=== PATIENT | male | born 1975 | race Hispanic/Latino ===

== ENCOUNTER 2020-08-23 23:53 | Emergency (ER) | payer OTHER ==
--- NOTE | 2020-08-24 01:33 | ER ---
Nurse's Notes [facility] Name: Willie Hayes Jr Age: 45 yrs Sex: Male : 1975 Arrival Date: 08/23/2020 Time: 23:54 Bed 5 Private MD: Diagnosis: Assessment: 08/24 00:58 Reassessment: Pt refused care pt states " I don't really want to go through all of ea this, I have to go to work in the morning and really can't stay here for labs or anything like that, I'll just call my doctor in the morning" Pt left ED ambulatory tolerating well. ED Course: 08/23 23:54 Patient arrived in ED. am4 Administered Medications: No medications were administered Outcome: 08/24 01:01 Patient left the ED. ea Signatures: Maria M Solorzano, RN RN Krystle Gutierrez am4
== END 2020-08-24 01:01 | disposition left against medical advice (07) ==
LOC: ER 23:53
DX: Z02.9 Encounter for administrative examinations, unspecified (principal)

== ENCOUNTER 2020-08-24 14:10 | Observation (INO) | payer OTHER ==
[2020-08-24 16:41] LABS: Protime INR 1.69
[2020-08-24 16:42] LABS: Absolute Lymphocytes (CBC) 1.5 K/uL (0.7-4.9); Basophils % 2.3 % (0-1.3); Lymphocytes % 22.5 % (15.3-44.8); MPV 9.4 fL (7.6-11.3); RBC Red Blood Cell Count 2.67 M/uL (4.33-5.43)
[2020-08-24 16:47] LABS: ALT/SGPT 23 U/L (12-78); AST/SGOT 35 U/L (15-37); Alkaline Phosphatase 121 U/L (45-117); BUN Blood Urea Nitrogen 9 mg/dL (7-18); Bicarbonate 24 mmol/L (21-32); Bilirubin Direct 0.5 mg/dL (0-0.2); Glucose Level 123 mg/dL (74-106); Hematocrit 15.2 % (39.6-49.0); Magnesium 2.3 mg/dL (1.8-2.4); NT PRO-BNP 54 pg/mL (<125); Potassium 3.6 mmol/L (3.5-5.1); Protein, Total 7.4 g/dL (6.4-8.2); Sodium Level 142 mmol/L (136-145); Troponin (Emerg Dept Use Only) < 0.02 ng/mL (0.0-0.045)
--- NOTE | 2020-08-24 17:23 | RAD REPORT ---
EXAM DESCRIPTION: RAD - Chest Single View - 08/24/2020 5:16 pm CLINICAL HISTORY: lower extremity swelling Chest pain. COMPARISON: CHEST PA AND LAT 2 VIEW dated 06/16/2012 FINDINGS: Portable technique limits examination quality. The lungs are grossly clear. The heart is normal in size. No displaced fractures. IMPRESSION: No acute intrathoracic process suspected.
[2020-08-24 18:39] LABS: Ferritin 2.2 ng/mL (26-388)
--- NOTE | 2020-08-24 18:45 | EDPHYS ---
Physician Documentation [facility] Name: Willie Hayes Jr Age: 45 yrs Sex: Male : 1975 Arrival Date: 08/24/2020 Time: 14:14 Bed 6 Private MD: Stevie Cerna ED Physician Obey Carlos HPI: 08/24 16:10 This 45 yrs old Male presents to ER via Ambulatory with complaints of Abnormal cp Lab Results. 16:10 General swelling of lower legs and anemia times 1 week. Patient reports having blood cp work drawn by office of DR Danielson yesterday and being referred to ED for anemia. Historical: - Allergies: 14:30 No Known Allergies; ca1 - Home Meds: 14:30 None [Active]; ca1 - PMHx: 14:30 Anxiety; Depression; ca1 - PSHx: 14:30 None; ca1 - Immunization history:: Flu vaccine is not up to date. - Social history:: Smoking status: Patient reports the use of cigarette tobacco products, smokes one-half pack cigarettes per day. ROS: 16:11 Eyes: Negative for injury, pain, redness, and discharge. cp 16:11 Constitutional: Negative for body aches, chills, fever, poor PO intake. 16:11 Cardiovascular: Positive for edema, Negative for chest pain, palpitations. 16:11 Respiratory: Negative for cough, shortness of breath, wheezing. 16:11 Abdomen/GI: Negative for abdominal pain, nausea, vomiting, and diarrhea. 16:11 Neuro: Negative for altered mental status, dizziness, headache, syncope, weakness. 16:11 All other systems are negative. Exam: 16:12 Head/Face: Normocephalic, atraumatic. cp 16:12 Constitutional: The patient appears in no acute distress, alert, awake, comfortable, non-diaphoretic, non-toxic, well developed, well nourished. 16:12 Eyes: Periorbital structures: appear normal, Conjunctiva: normal, no exudate, no injection, Sclera: no appreciated abnormality, Lids and lashes: appear normal, bilaterally. 16:12 ENT: External ear(s): are unremarkable, Nose: is normal, Posterior pharynx: Airway: no evidence of obstruction, patent. 16:12 Chest/axilla: Inspection: normal, Palpation: is normal, no crepitus, no tenderness. 16:12 Cardiovascular: Rate: normal, Rhythm: regular, Heart sounds: murmur, not appreciated, Edema: ankle edema, that is mild, JVD: is not appreciated. 16:12 Respiratory: the patient does not display signs of respiratory distress, Respirations: normal, no use of accessory muscles, no retractions, no splinting, no tachypnea, labored breathing, is not present, Breath sounds: are clear throughout, no decreased breath sounds, no stridor, no wheezing. 16:12 Abdomen/GI: Inspection: abdomen appears normal, Palpation: abdomen is soft and non-tender, in all quadrants. 16:12 Neuro: Orientation: to person, place \T\ time. Mentation: is normal, Cerebellar function: is grossly normal, Motor: moves all fours, strength is normal, Sensation: is normal. 16:28 ECG was reviewed by the Attending Physician. cp 17:00 : Rectal exam: Stool: brown, sample provided in toilet hat by patient, Guaiac cp testing: results were negative for occult blood. Vital Signs: 14:26 BP 158 / 73; Pulse 96; Resp 16 S; Temp 97.6(TE); Pulse Ox 100% on R/A; Weight 88.45 kg ca1 (R); Height 5 ft. 7 in. (170.18 cm) (R); Pain 0/10; 16:36 Pulse 83; Resp 17 S; Pulse Ox 99% on R/A; jd3 17:52 BP 146 / 64; Pulse 98; Resp 17; Pulse Ox 100% ; bp 19:45 BP 136 / 66; Pulse 71; Resp 18; Temp 98.6; Pulse Ox 100% ; ea 20:30 BP 134 / 64; Pulse 77; Resp 18; Temp 98.5; Pulse Ox 100% ; ea 22:11 BP 132 / 77; Pulse 70; Resp 18; Temp 98.2; Pulse Ox 100% ; ea 14:26 Body Mass Index 30.54 (88.45 kg, 170.18 cm) ca1 MDM: 15:48 Patient medically screened. cp 16:30 Differential Diagnosis chronic anemia, upper GI bleed, lower GI bleed. cp 17:35 Data reviewed: vital signs, nurses notes, lab test result(s), EKG, and as a result, I cp will admit patient. 17:35 Test interpretation: by ED physician or midlevel provider: ECG. cp 18:10 Counseling: I had a detailed discussion with the patient and/or guardian regarding: the cp historical points, exam findings, and any diagnostic results supporting the discharge/admit diagnosis, lab results, the need for further work-up and treatment in the hospital. 18:10 Physician consultation: Jadiel BAUGH was called at 18:10, was contacted at 18:10, cp regarding admission, to the telemetry unit. patient's condition. 08/24 16:04 Order name: Basic Metabolic Panel cp 08/24 16:04 Order name: CBC with Diff cp 08/24 16:04 Order name: LFT's; Complete Time: 17:02 cp 08/24 17:04 Interpretation: Normal except: ALK 121; BILID 0.5; ALB 3.0; GLOB 4.4; A/G 0.7. cp 08/24 16:04 Order name: Magnesium; Complete Time: 17:02 cp 08/24 16:04 Order name: NT PRO-BNP; Complete Time: 17:02 cp 08/24 16:04 Order name: PT-INR; Complete Time: 17:02 cp 08/24 16:04 Order name: Troponin (emerg Dept Use Only); Complete Time: 17:02 cp 08/24 16:04 Order name: Basic Metabolic Panel; Complete Time: 17:02 EDMS 08/24 16:04 Order name: CBC with Automated Diff EDMS 08/24 17:03 Interpretation: Normal except: RBC 2.67; HGB 4.0; HCT 15.2; MCV 57.1; MCH 15.1; MCHC cp 26.5; RDW 23.1; EOSINOPHIL % 7.0; BASO% 2.3. 08/24 17:04 Order name: Type And Screen cp 08/24 17:05 Order name: Type and Screen EDMS 08/24 17:31 Order name: Packed RBC Leukored EDMS 08/24 18:07 Order name: Ferritin la1 08/24 18:07 Order name: TIBC la1 08/24 16:04 Order name: XRAY Chest (1 view); Complete Time: 17:28 cp 08/24 17:29 Interpretation: Report reviewed. cp 08/24 16:04 Order name: EKG; Complete Time: 16:04 cp 08/24 16:04 Order name: Cardiac monitoring; Complete Time: 16:08 cp 08/24 16:04 Order name: EKG - Nurse/Tech; Complete Time: 16:20 cp 08/24 16:04 Order name: IV Saline Lock; Complete Time: 16:20 cp 08/24 16:04 Order name: Labs collected and sent; Complete Time: 16:19 cp 08/24 16:04 Order name: O2 Per Protocol; Complete Time: 16:19 cp 08/24 18:10 Order name: ABO/RH no charge EDOK 08/24 18:24 Order name: Iron Level la1 08/24 19:41 Order name: SARS-COV-2 RT PCR EDOK 08/24 20:15 Order name: C-Reactive Protein EDOK 08/24 22:11 Order name: CBC Smear Scan EDOK 08/24 16:04 Order name: O2 Sat Monitoring; Complete Time: 16:20 cp EC:28 Rate is 84 beats/min. Rhythm is regular. OK interval is normal. QRS interval is normal. cp QT interval is normal. T waves are Flattened in lead aVL. Interpreted by me. Reviewed by me. Administered Medications: No medications were administered Disposition: 08/25 01:21 Co-signature as Attending Physician, Obey Carlos MD I agree with the assessment and [facility] plan of care. Disposition: 08/24/20 18:44 Hospitalization ordered by Andrey Mobley for Observation. Preliminary diagnosis is Anemia in chronic diseases classified elsewhere. - Bed requested for Telemetry/MedSurg (observation). - Status is Observation. ea - Condition is Stable. - Problem is new. - Symptoms have improved. Signatures: Dispatcher [employer] Obey Reno MD MD cha Page, Corey, PA PA cp Antunez, Elena, RN RN ea Acob, Cheryl RN Yoli Oquendo RN RN rd1 Corrections: (The following items were deleted from the chart) 08/24 18:18 18:17 FERRITIN+C.LAB.BRZ ordered. EDMS EDMS 18:37 18:17 CORONAVIRUS+MR.LAB.BRZ ordered. EDMS EDMS 20:10 18:25 Ferritin ordered. EDMS EDMS 20:14 20:10 C-REACTIVE PROTEIN+C.LAB.BRZ ordered. EDMS EDMS 21:20 18:44 Hospitalization Ordered by Andrey Mobley MD for Observation. Preliminary rd1 diagnosis is Anemia in chronic diseases classified elsewhere. Bed requested for Telemetry/MedSurg (observation). Status is Observation. Condition is Stable. Problem is new. Symptoms have improved. cp 22:32 21:20 08/24/2020 18:44 Hospitalization Ordered by Andrey Mobley MD for Observation. ea Preliminary diagnosis is Anemia in chronic diseases classified elsewhere. Bed requested for Telemetry/MedSurg (observation). Status is Observation. Condition is Stable. Problem is new. Symptoms have improved. rd1
--- NOTE | 2020-08-24 18:45 | ER ---
Nurse's Notes [facility] Name: Willie Hayes Jr Age: 45 yrs Sex: Male : 1975 Arrival Date: 08/24/2020 Time: 14:14 Bed 6 Private MD: Stevie Cerna Diagnosis: Anemia in chronic diseases classified elsewhere Presentation: 08/24 14:26 Chief complaint: Patient states: Swelling on yumiko feet, ankles, legs x 1 week. Blood ca1 word done yesterday morning. Instructed by PCP to come to the ER last night for low HGB. Denies SOB. Denies dizziness, lightheaded. Denies bloody stool. Coronavirus screen: Client denies travel out of the [place] in the last 14 days. At this time, the client does not indicate any symptoms associated with coronavirus-19. Ebola Screen: Patient negative for fever greater than or equal to 101.5 degrees Fahrenheit, and additional compatible Ebola Virus Disease symptoms Patient denies exposure to infectious person. Patient denies travel to an Ebola-affected area in the 21 days before illness onset. No symptoms or risks identified at this time. Initial Sepsis Screen: Does the patient meet any 2 criteria? No. Patient's initial sepsis screen is negative. Does the patient have a suspected source of infection? No. Patient's initial sepsis screen is negative. Risk Assessment: Do you want to hurt yourself or someone else? Patient reports no desire to harm self or others. Onset of symptoms was August 24, 2020. 14:26 Method Of Arrival: Ambulatory ca1 14:26 Acuity: LAWRENCE 3 ca1 Historical: - Allergies: 14:30 No Known Allergies; ca1 - Home Meds: 14:30 None [Active]; ca1 - PMHx: 14:30 Anxiety; Depression; ca1 - PSHx: 14:30 None; ca1 - Immunization history:: Flu vaccine is not up to date. - Social history:: Smoking status: Patient reports the use of cigarette tobacco products, smokes one-half pack cigarettes per day. Screenin:36 Abuse screen: Denies threats or abuse. Nutritional screening: No deficits noted. jd3 Tuberculosis screening: No symptoms or risk factors identified. Fall Risk Ambulatory Aid- None/Bed Rest/Nurse Assist (0 pts). Gait- Normal/Bed Rest/Wheelchair (0 pts) Mental Status- Oriented to own ability (0 pts). Total Rainey Fall Scale indicates No Risk (0-24 pts). Assessment: 16:34 General: Appears in no apparent distress. comfortable, Behavior is calm, cooperative, jd3 appropriate for age. Pain: Denies pain. Neuro: Level of Consciousness is awake, alert, obeys commands, Oriented to person, place, time, situation. Cardiovascular: Denies chest pain, Capillary refill < 3 seconds Patient's skin is warm and dry. Rhythm is regular. Respiratory: Airway is patent Respiratory effort is even, unlabored, Respiratory pattern is regular, symmetrical, Denies cough, shortness of breath. GI: No signs and/or symptoms were reported involving the gastrointestinal system. : No signs and/or symptoms were reported regarding the genitourinary system. EENT: No signs and/or symptoms were reported regarding the EENT system. Derm: Skin is intact, Skin is dry, Skin is normal, Skin temperature is warm. Musculoskeletal: Circulation, motion, and sensation intact. Range of motion: intact in all extremities. 17:53 Reassessment: No changes from previously documented assessment. Patient and/or family bp updated on plan of care and expected duration. Pain level reassessed. Patient is alert, oriented x 3, equal unlabored respirations, skin warm/dry/pink. ALL CURRENT ORDERS COMPLETED. 18:15 Reassessment: Consent for RBCs obtained and signed by pt (see pt's chart). aa5 18:15 Reassessment: Patient appears in no apparent distress at this time. No changes from jd3 previously documented assessment. Patient and/or family updated on plan of care and expected duration. Pain level reassessed. Patient is alert, oriented x 3, equal unlabored respirations, skin warm/dry/pink. Patient denies pain at this time. 19:20 General: Appears in no apparent distress. comfortable, Behavior is calm, cooperative, ea appropriate for age. Pain: Denies pain. Neuro: Level of Consciousness is awake, alert, obeys commands, Oriented to person, place, time, situation. Cardiovascular: Patient's skin is warm and dry. Respiratory: Airway is patent Respiratory effort is even, unlabored, Respiratory pattern is regular, symmetrical. Derm: Skin is dry, Skin is normal, Skin temperature is warm. 20:53 Reassessment: Patient and/or family updated on plan of care and expected duration. Pain ea level reassessed. Patient is alert, oriented x 3, equal unlabored respirations, skin warm/dry/pink. 22:10 Reassessment: Patient and/or family updated on plan of care and expected duration. Pain ea level reassessed. Patient is alert, oriented x 3, equal unlabored respirations, skin warm/dry/pink. Report given to receiving nurse. Pt admitted to fourth floor. Awaiting on to bring personal belongings. Pt denies pain at this time. Vital Signs: 14:26 BP 158 / 73; Pulse 96; Resp 16 S; Temp 97.6(TE); Pulse Ox 100% on R/A; Weight 88.45 kg ca1 (R); Height 5 ft. 7 in. (170.18 cm) (R); Pain 0/10; 16:36 Pulse 83; Resp 17 S; Pulse Ox 99% on R/A; jd3 17:52 BP 146 / 64; Pulse 98; Resp 17; Pulse Ox 100% ; bp 19:45 BP 136 / 66; Pulse 71; Resp 18; Temp 98.6; Pulse Ox 100% ; ea 20:30 BP 134 / 64; Pulse 77; Resp 18; Temp 98.5; Pulse Ox 100% ; ea 22:11 BP 132 / 77; Pulse 70; Resp 18; Temp 98.2; Pulse Ox 100% ; ea 14:26 Body Mass Index 30.54 (88.45 kg, 170.18 cm) ca1 ED Course: 14:14 Patient arrived in ED. am2 14:16 Stevie Cerna MD is Private Physician. am2 14:30 Triage completed. ca1 14:30 Arm band placed on right wrist. ca1 14:37 Obey Luna PA is PHCP. cp 14:37 Obey Carlos MD is Attending Physician. cp 15:56 Reymundo Mccallum RN is Primary Nurse. jd3 16:20 Initial lab(s) drawn, by me, sent to lab. Inserted saline lock: 20 gauge in right em1 antecubital area, using aseptic technique. Blood collected. 16:36 Patient has correct armband on for positive identification. Bed in low position. Call jd3 light in reach. Side rails up X 1. Adult w/ patient. stereoptic projection topographer on. Pulse ox on. NIBP on. 17:16 XRAY Chest (1 view) In Process Unspecified. EDMS 18:43 Andrey Mobley MD is Hospitalizing Provider. cp 19:28 Primary Nurse role handed off by Reymundo Mccallum, RN jd3 19:30 Inserted saline lock: 20 gauge in left forearm, using aseptic technique. ea 20:13 Maria M Solorzano, RN is Primary Nurse. ea 20:29 No provider procedures requiring assistance completed. Patient admitted, IV remains in ea place. Administered Medications: No medications were administered Outcome: 18:44 Decision to Hospitalize by Provider. cp 20:29 Condition: stable ea 20:29 Instructed on the need for admit, Demonstrated understanding of instructions. 22:32 Admitted to Med/surg accompanied by tech, via wheelchair, room 408, with chart, Report ea called to Receiving nurse on fourth floor 22:32 Patient left the ED. ea Signatures: Dispatcher [employer] EDMS Indra Dallas em1 Taryn Galvan, RN RN aa5 Obey Luna, PA PA cp Melyssa Sheldon am2 Maria M Solorzano, RN RN Reymundo Gallegos, RN RN jd3 Hugo Tafoya RN RN bp Acob, Cheryl, RN RN ca1
[2020-08-24] MEDS ORDERED: NA CHLORIDE 0.9% 500 ML ONE (19:39)
[2020-08-24] MEDS ORDERED: NA CHLORIDE 0.9% 250 ML ONE ×2 (19:44→23:07)
--- NOTE | 2020-08-24 20:14 | P.HP ---
Certification for Inpatient Patient admitted to: Observation With expected LOS: <2 Midnights Patient will require the following post-hospital care: None Practitioner: I am a practitioner with admitting privileges, knowledge of patient current condition, hospital course, and medical plan of care. Services: Services provided to patient in accordance with Admission requirements found in Title 42 Section 412.3 of the Code of Federal Regulations <Jadiel Gonzalez - Last Filed: 08/24/20 20:12> Patient History Date of Service: 08/24/20 Primary Care Provider: Dr. Cerna Reason for admission: Severe anemia History of Present Illness: 45-year-old male with no significant past medical history presents em ergency department for abnormal labs. Patient reports that he noticed some swelling in his lower extremities he presented to his primary care doctor's office were he has for team lab work done. Routine labs demonstrate very low hemoglobin. Patient evaluated in the emergency department hemoglobin 4.0, hematocrit 15.2, MCV 57.1 iron 10 TIBC 462 transferrin 330 transferrin percent saturation 2.2 ferritin level pending, hemoccult negative in the emergency department, patient denies any melena/BRBPR, hematemesis, coffee-ground emesis. Patient reports he has been craving ice for the past 1 year. Patient also tested positive for COVID CRP level pending, patient without any shortness of breath, room air saturations 100%. 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, lives at home with his family - Family History Mother -: Cancer - Social History Smoking Status: Never smoker Smoking therapy provided: No Alcohol use: Yes CD- Drugs: No Caffeine use: Yes Place of Residence: Home <AlokbentleyJadiel - Last Filed: 08/24/20 20:12> Date of Service: 08/26/20 <Andrey Mobley - Last Filed: 08/26/20 19:38> Allergies No Known Allergies Allergy (Verified 08/24/20 22:54) Review of Systems 10-point ROS is otherwise unremarkable Cardiovascular: Edema <LisaJadiel - Last Filed: 08/24/20 20:12> Physical Examination - Physical Exam General: Alert, In no apparent distress HEENT: Atraumatic, PERRLA, Other (Mucous membranes moist but very pale), EOMI, Sclerae nonicteric Neck: Supple, 2+ carotid pulse no bruit, No LAD, Without JVD or thyroid abnorm ality Respiratory: Clear to auscultation bilaterally, Normal air movement Cardiovascular: Regular rate/rhythm, Normal S1 S2, Edema (1+ nonpitting edema of lower extremities) Gastrointestinal: Normal bowel sounds, No tenderness Musculoskeletal: No tenderness Integumentary: No rashes Neurological: Normal gait, Normal speech, Normal strength at 5/5 x4 extr, Normal tone, Normal affect Lymphatics: No axilla or inguinal lymphadenopathy - Studies Laboratory Data (last 24 hrs) 08/24/20 16:15: PT 19.5 H, INR 1.69 08/24/20 16:15: WBC 6.50, Hgb 4.0 L*, Hct 15.2 L*, Plt Count 155 08/24/20 16:15: Sodium 142, Potassium 3.6, BUN 9, Creatinine 0.62, Glucose 123 H, Magnesium 2.3, Total Bilirubin 1.0, AST 35, ALT 23, Alkaline Phosphatase 121 H <Jadiel Gonzalez - Last Filed: 08/24/20 20:12> Assessment and Plan - Plan Assessment Severe iron deficiency anemia Plan Severe iron deficiency anemia: Patient be transfused 2 units packed red blood cells with 2 hr post H&H, will transfuse to hemoglobin level of 7. Patient need to follow up with GI on an outpatient basis and hematology for further evaluation and management of his microcytic anemia. Patient denies any melena/hematochezia/hematemesis/hematuria/vomiting. Stool guaiac negative for occult blood in the emergency department. DVT prophylaxis with SCDs. Discharge Plan: Home Plan to discharge in: 24 Hours - Advance Directives Does patient have a Living Will: No Does patient have a Durable POA for Healthcare: No - Code Status/Comfort Care Code Status Assessed: Yes (Full code) Critical Care: No Time Spent Managing Pts Care (In Minutes): 55 <Jadiel Gonzalez - Last Filed: 08/24/20 20:12> - Plan Plan of care reviewed as noted above. Severe iron deficiency anemia, with lower extremity edema and pica <Andrey Mobley - Last Filed: 08/26/20 19:38>
[2020-08-24 20:22] LABS: C-Reactive Protein 5.58 mg/L (<3.00)
[2020-08-24 22:10] LABS: Anisocytosis 2+; Blood Morphology Comment NOTED (NOT SEEN); Hypochromasia 3+; Platelet Estimate ADEQ; Poikilocytosis 3+; Polychromasia 2+; White Blood Cell Scan OK (OK)
[2020-08-24 22:11] LABS: Ovalocytes 2+; Teardrop Cell 3+
[2020-08-24] MEDS ORDERED: SODIUM CHLORIDE 0.9% 10ML INJ IV PRN (22:37)
[2020-08-24] MEDS ORDERED: ONDANSETRON 4 MG/2 ML VIAL IV PRN (22:37)
[2020-08-24] MEDS: FERROUS SULFATE 325 MG TAB PO SCH (22:49)
[2020-08-24 22:54] VITALS: BMI 30.5
[2020-08-25 04:08] LABS: Urine Appearance CLEAR; Urine Bilirubin NEGATIVE (NEG); Urine Blood NEGATIVE (NEG); Urine Color YELLOW; Urine Glucose NEGATIVE (NEG); Urine Protein NEGATIVE (NEG); Urine Specific Gravity 1.015 (1.005-1.030); Urine pH 7.5 (5.0-7.0)
[2020-08-25 04:10] LABS: Urine Microscopic Reflex NO UMIC
[2020-08-25] MEDS: FERROUS SULFATE 325 MG TAB PO SCH ×2 (07:38→16:16)
[2020-08-25 07:46] LABS: Absolute Lymphocytes (CBC) 1.5 K/uL (0.7-4.9); Basophils % 1.7 % (0-1.3); Hematocrit 18.5 % (39.6-49.0); Lymphocytes % 23.5 % (15.3-44.8); RBC Red Blood Cell Count 2.92 M/uL (4.33-5.43)
[2020-08-25 08:30] LABS: ALT/SGPT 19 U/L (12-78); AST/SGOT 33 U/L (15-37); Albumin 2.6 g/dL (3.4-5.0); Alkaline Phosphatase 104 U/L (45-117); BUN Blood Urea Nitrogen 8 mg/dL (7-18); Bicarbonate 23 mmol/L (21-32); Bilirubin Total 1.7 mg/dL (0.2-1.0); Glucose Level 92 mg/dL (74-106); Magnesium 2.2 mg/dL (1.8-2.4); Potassium 3.8 mmol/L (3.5-5.1); Protein, Total 6.5 g/dL (6.4-8.2); Sodium Level 141 mmol/L (136-145)
[2020-08-25] MEDS ORDERED: PANTOPRAZOLE 40 MG INJ IVP SCH (09:00)
[2020-08-25 10:23] LABS: Anisocytosis 3+; Blood Morphology Comment NOTED (NOT SEEN); Hypochromasia 2+; Ovalocytes 1+; Platelet Estimate ADEQ; Polychromasia 1+; White Blood Cell Scan OK (OK)
[2020-08-25 10:24] LABS: Teardrop Cell 1+
[2020-08-25] MEDS ORDERED: NA CHLORIDE 0.9% 100 ML ONE ×2 (10:28→13:05)
[2020-08-25] MEDS ORDERED: POTASSIUM CL SA 10 MEQ TAB PO ONE (11:00)
[2020-08-25] MEDS ORDERED: SOD FERRIC GLUC COMPLX/SUCROSE 250 MG in NA CHLORIDE 0.9% 250 ML IV ONE (14:00)
[2020-08-25 15:50] VITALS: O2SAT 97
[2020-08-25] MEDS ORDERED: INFLUENZA VACCINE (for 3y+) 0.5 ML DOSE IMVAC ONE (17:00)
--- NOTE | 2020-08-25 18:28 | P.DS ---
Admission Date: 08/24/20 Discharge Date: 08/25/20 Primary Care Provider: Dr. Cerna Disposition: ROUTINE DISCHARGE Discharge Condition: GOOD Reason for Admission: Severe anemia Consultations: none Procedures: Chest x-ray FINDINGS: Portable technique limits examination quality. The lungs are grossly clear. The heart is normal in size. No displaced fractures. IMPRESSION: No acute intrathoracic process suspected. Medical problem list Severe iron deficiency anemia Gastritis Brief History of Present Illness: 45-year-old male with no significant past medical history presents emergency department for abnormal labs. Patient reports that he noticed some swelling in his lower extremities he presented to his primary care doctor's office were he has for team lab work done. Routine labs demonstrate very low hemoglobin. Patient evaluated in the emergency department hemoglobin 4.0, hematocrit 15.2, MCV 57.1 iron 10 TIBC 462 transferrin 330 transferrin percent saturation 2.2 ferritin level pending, hemoccult negative in the emergency department, patient denies any melena/BRBPR, hematemesis, coffee-ground emesis. Patient reports he has been craving ice for the past 1 year. Patient also tested positive for COVID CRP level pending, patient without any shortness of breath, room air saturations 100%. Hospital Course: 45-year-old male was admitted for severe anemia hemoglobin 4.0, hematocrit 15.2 MCV 57.1 on admission. Iron studies were obtained demonstrating iron level 10.0 TIBC 462 transferrin 330 transferrin percent 2.2 ferritin 2.2 LDH 177. Patient was given a total of 4 units of packed red blood cells in addition to oral and IV iron in the hospital. Patient spotted well to therapy hemoglobin increased to 7.4. Patient denied any melena, hematochezia, hematemesis, hematuria. Patient does report some chronic gastritis/GERD symptoms. At this time patient is stable for discharge, patient instructed to follow up with GI/hematology on outpatient basis for further evaluation and management of his severe iron-deficiency anemia. At discharge patient will be prescribed oral iron, ascorbic acid, pantoprazole. Vital Signs/Physical Exam: Temp Pulse Resp BP Pulse Ox 97.8 F 68 18 120/64 97 08/25/20 15:43 08/25/20 15:43 08/25/20 15:43 08/25/20 15:43 08/25/20 15:43 General: Alert, In no apparent distress HEENT: Atraumatic, PERRLA, EOMI Neck: Supple, JVD not distended Respiratory: Clear to auscultation bilaterally, Normal air movement Cardiovascular: Regular rate/rhythm, Normal S1 S2 Gastrointestinal: Normal bowel sounds, No tenderness Musculoskeletal: No tenderness Integumentary: No rashes Neurological: Normal speech, Normal tone, Normal affect Lymphatics: No axilla or inguinal lymphadenopathy Laboratory Data at Discharge: WBC 6.50 K/uL (4.3-10.9) 08/25/20 07:07 Hgb 7.4 g/dL (13.6-17.9) L* 08/25/20 17:45 Hct 25.0 % (39.6-49.0) L D 08/25/20 17:45 Plt Count 152 K/uL (152-406) 08/25/20 07:07 PT 19.5 SECONDS (9.5-12.5) H 08/24/20 16:15 INR 1.69 08/24/20 16:15 Sodium 141 mmol/L (136-145) 08/25/20 07:07 Potassium 3.8 mmol/L (3.5-5.1) 08/25/20 07:07 BUN 8 mg/dL (7-18) 08/25/20 07:07 Creatinine 0.49 mg/dL (0.55-1.3) L 08/25/20 07:07 Glucose 92 mg/dL (74-106) 08/25/20 07:07 Magnesium 2.2 mg/dL (1.8-2.4) 08/25/20 07:07 Total Bilirubin 1.7 mg/dL (0.2-1.0) H 08/25/20 07:07 AST 33 U/L (15-37) 08/25/20 07:07 ALT 19 U/L (12-78) 08/25/20 07:07 Alkaline Phosphatase 104 U/L (45-117) 08/25/20 07:07 Home Medications: Ascorbic Acid 500 mg PO DAILY #30 tablet 08/25/20 Ferrous Sulfate [Iron] 325 mg PO SEECOM #30 tablet 08/25/20 Pantoprazole [Protonix Tab*] 40 mg PO DAILY #30 tab 08/25/20 New Medications: Ascorbic Acid 500 mg PO DAILY #30 tablet Ferrous Sulfate [Iron] 325 mg PO SEECOM #30 tablet Pantoprazole [Protonix Tab*] 40 mg PO DAILY #30 tab Physician Discharge Instructions: Your found to have severe iron deficiency anemia. You will need to follow up with gastroenterology for further evaluation of possible chronic blood loss from your GI tract. You also need to follow up with hematology in order to arrange for likely IV iron infusions. You need to start new home medications pantoprazole which is for your gastric reflux, iron which will be taking every other day, vitamin-C/ascorbic acid which will help with the absorption of the iron. It is very important that she follow up with the gastr oenterology/hematology for further evaluation and management of your severe iron deficiency anemia. If you notice any blood in her stool or dark tarry stools you should present to the nearest emergency department for evaluation. Also a few become increasingly short of breath, pale or feel very well you should also be evaluated. At the time of discharge your hemoglobin is 7.4 which is low but acceptable, you need to continue with your treatment on an outpatient basis. Diet: Regular Activity: Ad beverley Followup: Stevie Cerna MD [Primary Care Provider] - Mindy Caldwell MD [ACTIVE - CAN ADMIT] - Nathan Perez MD [ASSOCIATE-ACTIVE - CAN ADMIT] - Time spent managing pt's care (in minutes): 35
[2020-08-25 19:57] VITALS: BP 154/73; TEMP 97.1
== END 2020-08-25 19:40 | disposition home or self-care (01) ==
LOC: ER 14:10 → ERHOLD 19:33 → 4TH 22:14
PROVIDERS: ADMIT Hospitalist; ATTEND Hospitalist
DX: D50.9 Iron deficiency anemia, unspecified (principal); K29.70 Gastritis, unspecified, without bleeding; U07.1 COVID-19; F41.9 Anxiety disorder, unspecified; F32.9 Major depressive disorder, single episode, unspecified; F17.210 Nicotine dependence, cigarettes, uncomplicated
CPT/HCPCS: 36430; 93005; 85025 ×2; 80048; 36415; 86900; 83735 ×2; 86850; 83615; 85610; 86901; 80076; 85018; 85014; 81003; 84484; 82728; 83540; 83010; 80053; 83880; 84466; 86140; 71045; U0003; C9113; J2916; P9016 ×4; J7050 ×3; J7040; G0378 ×2; 99285

== ENCOUNTER 2021-03-10 10:35 | Inpatient (IN) | payer OTHER ==
[2021-03-10 12:31] LABS: Protime INR 1.6
[2021-03-10 12:38] LABS: Absolute Lymphocytes (CBC) 1.8 K/uL (0.7-4.9); Basophils % 2.9 % (0-1.3); Lymphocytes % 26.4 % (15.3-44.8); MPV 8.5 fL (7.6-11.3); RBC Red Blood Cell Count 2.78 M/uL (4.33-5.43)
[2021-03-10 12:38] LABS: BUN Blood Urea Nitrogen 8 mg/dL (7-18); Bicarbonate 24 mmol/L (21-32); Ferritin 1.6 ng/mL (26-388); Folic Acid, (Folate) 9.7 ng/mL (3.1-17.5); Glucose Level 110 mg/dL (74-106); NT PRO-BNP 39 pg/mL (<125); Potassium 3.3 mmol/L (3.5-5.1); Sodium Level 140 mmol/L (136-145); Transferrin 298 mg/dL (200-360)
--- NOTE | 2021-03-10 13:27 | ER ---
Nurse's Notes [facility] Name: Willie Hayes Jr Age: 46 yrs Sex: Male : 1975 Arrival Date: 03/10/2021 Time: 10:40 Bed 23 Private MD: Stevie Cerna Diagnosis: Iron deficiency anemia, unspecified Presentation: 03/10 11:02 Chief complaint: Patient states: Reports intermittent bilateral leg swelling x and DAVID aj2 x 6 months . Reports recurrence of symptoms 1 day ago. Reports he was seen for the same symptoms months ago. Denies DAVID and leg swelling \T\ this time. Coronavirus screen: Vaccine status: Patient reports being unvaccinated. Ebola Screen: No symptoms or risks identified at this time. Initial Sepsis Screen: Does the patient meet any 2 criteria? No. Patient's initial sepsis screen is negative. Does the patient have a suspected source of infection? No. Patient's initial sepsis screen is negative. Risk Assessment: Do you want to hurt yourself or someone else? Patient reports no desire to harm self or others. Onset of symptoms was October 2020. 11:02 Method Of Arrival: Ambulatory aj2 11:02 Acuity: LAWRENCE 2 aj2 Triage Assessment: 11:11 General: Appears in no apparent distress. comfortable. General: Behavior is calm, aj2 cooperative. Pain: Denies pain. Respiratory: Reports shortness of breath yesterday Onset: The symptoms/episode began/occurred yesterday, the patient reports symptoms have resolved. Historical: - PMHx: 11:11 Anxiety; Depression; aj2 - Immunization history:: None. - Social history:: Smoking status: unknown. - Family history:: not pertinent. - Hospitalizations: : No recent hospitalization is reported. Screenin:37 Abuse screen: Denies threats or abuse. Denies injuries from another. Nutritional aj2 screening: No deficits noted. Tuberculosis screening: No symptoms or risk factors identified. Fall Risk None identified. Assessment: 11:37 Reassessment: Patient appears in no apparent distress at this time. Patient and/or aj2 family updated on plan of care and expected duration. Pain level reassessed. Patient is alert, oriented x 3, equal unlabored respirations, skin warm/dry/pink. Cardiovascular: Rhythm is. Respiratory: Airway is patent. 14:25 Reassessment: Patient appears in no apparent distress at this time. Patient and/or aj2 family updated on plan of care and expected duration. Pain level reassessed. Patient is alert, oriented x 3, equal unlabored respirations, skin warm/dry/pink. Patient denies pain at this time. 17:11 Reassessment: Patient appears in no apparent distress at this time. Patient and/or aj2 family updated on plan of care and expected duration. Pain level reassessed. Patient is alert, oriented x 3, equal unlabored respirations, skin warm/dry/pink. Patient is alert/active/playful, equal unlabored respirations, skin warm/dry/pink. Patient denies pain at this time. Patient states feeling better. Patient states symptoms have improved. Vital Signs: 11:02 BP 133 / 63; Pulse 94; Resp 18; Temp 98.7; Pulse Ox 100% ; aj2 11:02 Weight 81.65 kg; Height 5 ft. 8 in. (172.72 cm); aj2 11:11 BP 133 / 63; Pulse 90; Resp 18; Temp 98.7; Pulse Ox 100% ; aj2 11:37 BP 134 / 63; Pulse 86; Resp 18; Temp 98.7; Pulse Ox 100% ; aj2 14:25 BP 123 / 66; Pulse 82; Resp 18; Temp 98.7; Pulse Ox 100% on R/A; aj2 17:11 BP 128 / 70; Pulse 72; Resp 18; Temp 98.7; Pulse Ox 100% ; aj2 11:02 Body Mass Index 27.37 (81.65 kg, 172.72 cm) aj2 ED Course: 10:40 Patient arrived in ED. mr 10:41 Stevie Cerna MD is Private Physician. mr 10:56 Musa Mobley MD is Attending Physician. rn 11:02 Mandi Torres is Primary Nurse. aj2 11:11 Triage completed. aj2 11:11 Arm band placed on right wrist. aj2 11:36 Protime (+INR) Sent. aj2 11:36 PTT, Activated Partial Thromb Sent. aj2 11:36 CBC with Automated Diff Sent. aj2 11:36 Basic Metabolic Panel Sent. aj2 11:36 B12 Sent. aj2 11:36 Folic Acid,Serum (folate) Sent. aj2 11:36 Retic Count Sent. aj2 11:36 TRANSFERRIN SAT/IRON BINDING Sent. aj2 11:36 Iron Level Sent. aj2 11:36 Protime (+inr) Sent. aj2 11:36 Ptt, Activated Sent. aj2 11:36 CBC with Diff Sent. aj2 11:36 Basic Metabolic Panel Sent. aj2 11:36 BNP Sent. aj2 11:37 No apparent distress. Resting quietly. aj2 11:37 Patient has correct armband on for positive identification. aj2 11:37 No provider procedures requiring assistance completed. Inserted saline lock: 20 gauge. aj2 11:37 Inserted saline lock: in right. aj2 12:37 Type And Screen Sent. aj2 13:26 Andrey Mobley MD is Hospitalizing Provider. rn 14:25 No apparent distress. Resting quietly. aj2 14:25 IV is patent, is intact. aj2 14:46 Packed RBC Leukored Sent. aj2 14:46 Bb Add On Sent. aj2 17:11 No apparent distress. Resting quietly. Awaiting bed assignment. aj2 17:11 IV is patent, is intact. aj2 Administered Medications: No medications were administered Medication: 17:11 Blood products: PRBCs X 1 unit given. aj2 Outcome: 13:26 Decision to Hospitalize by Provider. rn 17:16 Admitted to Tele via wheelchair, Report called to RN (Ana Palafox). aj2 17:16 Condition: improved 17:25 Patient left the ED. ss Signatures: Sylwia Monet mr Musa Mobley MD MD rn Smirch, Shelby, RN RN ss Jenkins, Angelea aj2 Corrections: (The following items were deleted from the chart) 11:59 11:36 CORONAVIRUS+MR.LAB.BRZ drawn and sent. aj2 EDMS
--- NOTE | 2021-03-10 13:28 | EDPHYS ---
Physician Documentation [facility] Name: Willie Hayes Jr Age: 46 yrs Sex: Male : 1975 Arrival Date: 03/10/2021 Time: 10:40 Bed 23 Private MD: Stevie Cerna ED Physician Musa Mobley HPI: 03/10 11:51 This 46 yrs old Male presents to ER via Ambulatory with complaints of Leg rn Swelling, Dizziness, Shortness Of Breath. 11:51 The patient presents with dizziness, generalized weakness, lightheadedness. Onset: The rn symptoms/episode began/occurred 1 month(s) ago. Modifying factors: The symptoms are alleviated by nothing, the symptoms are aggravated by standing up, changing position. Associated signs and symptoms: Pertinent positives: shortness of breath, Pertinent negatives: abdominal pain, chest pain, focal weakness, headache, seizure, syncope. Severity of symptoms: At their worst the symptoms were mild in the emergency department the symptoms are unchanged. The patient has experienced a previous episode. The patient has not recently seen a physician. Patient reports 1 month of generalized weakness, fatigue, shortness of breath with exertion. States has happened once before and was diagnosed with anemia of uncertain etiology. Told to take iron pills which he is not taking due to constipation. Denies any blood in stool. Has already had an upper GI and a colonoscopy that was negative. Required admission last time with blood transfusion.. Historical: - PMHx: 11:11 Anxiety; Depression; aj2 - Immunization history:: None. - Social history:: Smoking status: unknown. - Family history:: not pertinent. - Hospitalizations: : No recent hospitalization is reported. ROS: 11:51 Constitutional: Negative for fever, chills, and weight loss, Eyes: Negative for injury, rn pain, redness, and discharge, ENT: Negative for injury, pain, and discharge, Neck: Negative for injury, pain, and swelling, Cardiovascular: Negative for chest pain, palpitations Respiratory: Negative for cough, wheezing, and pleuritic chest pain, Abdomen/GI: Negative for abdominal pain, nausea, vomiting, diarrhea, and constipation, Back: Negative for injury and pain, : Negative for injury, bleeding, discharge, and swelling, MS/Extremity: Negative for injury and deformity, Skin: Negative for injury, rash, and discoloration, Neuro: Negative for headache, numbness, tingling, and seizure. Exam: 11:51 Constitutional: This is a well developed, well nourished patient who is awake, alert, rn and in no acute distress. Head/Face: Normocephalic, atraumatic. Eyes: Periorbital areas with no swelling, redness, or edema. Cardiovascular: Regular rate and rhythm. No pulse deficits. Respiratory: No increased work of breathing, no retractions or nasal flaring. Abdomen/GI: Soft, non-tender Skin: Warm, dry with normal turgor. Normal color with no rashes, no lesions, and no evidence of cellulitis. MS/ Extremity: Pulses equal, no cyanosis. Neurovascular intact. Full, normal range of motion. Equal circumference. Neuro: Awake and alert, GCS 15 14:23 ECG was reviewed by the Attending Physician. rn Vital Signs: 11:02 BP 133 / 63; Pulse 94; Resp 18; Temp 98.7; Pulse Ox 100% ; aj2 11:02 Weight 81.65 kg; Height 5 ft. 8 in. (172.72 cm); aj2 11:11 BP 133 / 63; Pulse 90; Resp 18; Temp 98.7; Pulse Ox 100% ; aj2 11:37 BP 134 / 63; Pulse 86; Resp 18; Temp 98.7; Pulse Ox 100% ; aj2 14:25 BP 123 / 66; Pulse 82; Resp 18; Temp 98.7; Pulse Ox 100% on R/A; aj2 17:11 BP 128 / 70; Pulse 72; Resp 18; Temp 98.7; Pulse Ox 100% ; aj2 11:02 Body Mass Index 27.37 (81.65 kg, 172.72 cm) aj2 MDM: 10:56 Patient medically screened. rn 13:25 Differential diagnosis: generalized weakness, GI bleed, hypovolemia, idiopathic rn dizziness, iron deficiency anemia. Data reviewed: vital signs, nurses notes, lab test result(s), and as a result, I will admit patient. Data interpreted: change release manager: rate is 86 beats/min, rhythm is normal sinus rhythm, regular, with no ectopy, Interpretation: normal rate, normal rhythm, Pulse oximetry: on room air is 99 %. Interpretation: normal. Counseling: I had a detailed discussion with the patient and/or guardian regarding: the historical points, exam findings, and any diagnostic results supporting the discharge/admit diagnosis, lab results, the need for further work-up and treatment in the hospital. ED course: Most likePatient with hemoglobin of 4.4. No signs of GI bleed. Stable vitals. Just iron deficiency anemia which patient has not been supplementing due to constipation. Will transfuse 2 units and admit to hospital for further care.. 03/10 11:10 Order name: CBC with Diff rn 03/10 11:10 Order name: Basic Metabolic Panel rn 03/10 11:10 Order name: Protime (+inr) rn 03/10 11:10 Order name: Ptt, Activated rn 03/10 11:10 Order name: Iron Level; Complete Time: 13: rn 03/10 11:10 Order name: B12; Complete Time: 13: rn 03/10 11:10 Order name: Folic Acid,Serum (folate); Complete Time: 13: rn 03/10 11:10 Order name: Retic Count rn 03/10 11:10 Order name: TRANSFERRIN SAT/IRON BINDING; Complete Time: 13: rn 03/10 11:10 Order name: CBC with Automated Diff EDMS 03/10 11:10 Order name: Basic Metabolic Panel; Complete Time: 13: EDMS 03/10 11:10 Order name: Protime (+INR); Complete Time: 13:07 EDMS 03/10 11:10 Order name: PTT, Activated Partial Thromb; Complete Time: 13:07 EDMS 03/10 11:11 Order name: BNP; Complete Time: 13: rn 03/10 11:10 Order name: IV Start; Complete Time: 11:36 rn 03/10 11:11 Order name: EKG; Complete Time: 11:11 rn 03/10 11:11 Order name: EKG - Nurse/Tech; Complete Time: 11:33 rn 03/10 11:54 Order name: Type And Screen ss 03/10 12:58 Order name: SARS-COV-2 RT PCR; Complete Time: 13:07 EDMS 03/10 13:02 Order name: Bb Add On bd 03/10 13:05 Order name: Packed RBC Leukored EDMS 03/10 16:40 Order name: CBC Smear Scan EDMS EC:23 Rate is 86 beats/min. Rhythm is regular. QRS [place] is Normal. MO interval is normal. QRS rn interval is normal. QT interval is normal. No Q waves. T waves are Normal. No ST changes noted. Clinical impression: Normal ECG. Interpreted by me. Reviewed by me. Administered Medications: No medications were administered Disposition Summary: 03/10/21 13:26 Hospitalization Ordered Hospitalization Status: Observation rn Provider: Andrey Mobley rn Location: Telemetry/MedSurg (observation) rn Condition: Stable rn Problem: new rn Symptoms: have improved rn Bed/Room Type: Standard rn Room Assignment: 211(03/10/21 16:32) ss Diagnosis - Iron deficiency anemia, unspecified rn Forms: - Medication Reconciliation Form rn - SBAR form rn Signatures: Dispatcher [employer] EDND Musa Mobley MD MD rn Smirch, Shelby, RN RN Mandi Napoles aj2 Corrections: (The following items were deleted from the chart) 11:59 11:11 CORONAVIRUS+MR.LAB.BRZ ordered. [facility] EDND 16:32 13:26 rn ss
[2021-03-10] MEDS ORDERED: NA CHLORIDE 0.9% 500 ML ONE (14:23)
[2021-03-10 16:39] LABS: Anisocytosis 2+; Blood Morphology Comment NOTED (NOT SEEN); Platelet Estimate ADEQ; Poikilocytosis 1+; White Blood Cell Scan OK (OK)
[2021-03-10] MEDS ORDERED: LABETALOL 20 MG/4ML SYRINGE IV PRN (17:00)
[2021-03-10] MEDS ORDERED: ACETAMINOPHEN 500 MG TAB PO PRN (17:05)
[2021-03-10] MEDS ORDERED: ONDANSETRON 4 MG/2 ML VIAL IV PRN (17:05)
--- NOTE | 2021-03-10 17:07 | P.HP ---
Certification for Inpatient Patient admitted to: Observation With expected LOS: <2 Midnights Patient will require the following post-hospital care: Home Health Services Practitioner: I am a practitioner with admitting privileges, knowledge of patient current condition, hospital course, and medical plan of care. Services: Services provided to patient in accordance with Admission requirements found in Title 42 Section 412.3 of the Code of Federal Regulations Patient History Date of Service: 03/10/21 Reason for admission: LOLIS History of Present Illness: Patient is a 46-year-old male with a past medical history significant for Iron deficiency anemia, anxiety, depression who presents with complaint of shortness of breath, dizzy, generalized weakness, diaphoresis and joint pains that has been ongoing for the past 1 month. Patient reported that he had similar experience 6 months ago and underwent an EGD\colonoscopy with his mortgage loan computation clerk. Patient reported no findings of GI bleed was noted. Patient denies GI bleed or any other signs or symptoms. Symptoms are aggravated or relieved by nothing. Patient decided to present to the hospital due to worsening symptoms. Of note, patient reported that he was prescribed iron tablets in the last admission but patient stopped taking medication due to constipation. 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, lives at home with his family - Family History Mother -: Cancer - Social History Smoking Status: Current every day smoker Smoking therapy provided: Yes Alcohol use: Yes CD- Drugs: No Caffeine use: Yes Place of Residence: Home Review of Systems General: Weakness, Malaise Eyes: Unremarkable ENT: Unremarkable Respiratory: Shortness of Breath, SOB with Excertion Cardiovascular: Light Headedness Gastrointestinal: Unremarkable Musculoskeletal: Other (Joint pain ) Neurological: Weakness Lymphatics: Unremarkable Physical Examination - Physical Exam General: Alert, In no apparent distress, Oriented x3 HEENT: Atraumatic, PERRLA, Mucous membr. moist/pink, EOMI, Sclerae nonicteric Neck: Supple, 2+ carotid pulse no bruit, No LAD, Without JVD or thyroid abnormality Respiratory: Clear to auscultation bilaterally, Normal air movement Cardiovascular: Regular rate/rhythm, Normal S1 S2 Capillary refill: <2 Seconds Gastrointestinal: Normal bowel sounds, No tenderness Musculoskeletal: No tenderness Integumentary: No rashes Neurological: Normal gait, Normal speech, Normal tone, Normal affect Lymphatics: No axilla or inguinal lymphadenopathy External genitalia: Deferred Rectal: Deferred - Studies Laboratory Data (last 24 hrs) 03/10/21 11:45: PT 18.5 H, INR 1.60, APTT 29.2 03/10/21 11:45: WBC 6.60, Hgb 4.4 L*, Hct 16.0 L*, Plt Count 202 03/10/21 11:25: Sodium 140, Potassium 3.3 L, BUN 8, Creatinine 0.69, Glucose 110 H Assessment and Plan - Plan --Symptomatic iron deficiency anemia. Hemoglobin on presentation is 4.4. Occult stool test ordered. 2 units of PRBC being transfused in the ER. Patient has previously had colonoscopy\EGD with negative findings. Patient has not followed up with his GI doctor in the last 5 months. Ferritin and iron levels noted to be low on Iron studies. Patient not compliant with his iron tablets due to complaints of constipation. Patient started on iron infusion. Will reassess H&H in a.m. We will consult GI if occult stool test positive. --Nicotine dependence. Patient counseled on tobacco cessation and placed on nicotine patch. --Alcohol abuse. Patient reports drinking 4-6 beers every day but reported that he can do without drinking. CIWA protocol. --Hypokalemia. Replete as needed --Anxiety disorder\depression. Continue home medications when appropriate. --DVT prophylaxis with SCDs. I have had discussion about advanced directives with the patient during this hospital admission. Addressed code status and goals of care. Spent more than 30 minutes. Case discussed withpatient and nurse. The following document was completed using voice recognition software. This can produce manufacturing industrial engineer errors that can at times significantly distort words and phrases. Please interpret any aspect of the note that is nonsensical in light of this fact. Discharge Plan: Home Plan to discharge in: 48 Hours - Advance Directives Does patient have a Living Will: No Does patient have a Durable POA for Healthcare: No - Code Status/Comfort Care Code Status Assessed: Yes Code Status: Full Code Physician Review: Patient Assessed, Agree with Above Assessment and Plan Critical Care: No
[2021-03-10] MEDS: SOD FERRIC GLUC COMPLX/SUCROSE 250 MG in NA CHLORIDE 0.9% 250 ML IV SCH (18:06)
[2021-03-10 19:28] LABS: Troponin I < 0.02 ng/mL (0.0-0.045)
[2021-03-10] MEDS ORDERED: NA CHLORIDE 0.9% 250 ML ONE (23:50)
[2021-03-11 05:20] LABS: Urine Appearance CLEAR (Clear); Urine Bilirubin NEGATIVE (Negative); Urine Blood NEGATIVE (Negative); Urine Color DK YELLOW (Yellow); Urine Glucose NEGATIVE (Negative); Urine Protein NEGATIVE (Negative); Urine Specific Gravity 1.025 (1.005-1.030); Urine pH 6.5 (5.0-7.0)
[2021-03-11 05:45] LABS: Urine Microscopic Reflex NO UMIC
[2021-03-11 06:03] LABS: Absolute Lymphocytes (CBC) 1.1 K/uL (0.7-4.9); Basophils % 2.3 % (0-1.3); Lymphocytes % 18.8 % (15.3-44.8); MPV 8.6 fL (7.6-11.3); RBC Red Blood Cell Count 3.27 M/uL (4.33-5.43)
[2021-03-11 06:05] LABS: Protime INR 1.7
[2021-03-11 06:21] LABS: ALT/SGPT 19 U/L (12-78); AST/SGOT 34 U/L (15-37); Albumin 2.5 g/dL (3.4-5.0); Alkaline Phosphatase 114 U/L (45-117); BUN Blood Urea Nitrogen 8 mg/dL (7-18); Bicarbonate 25 mmol/L (21-32); Glucose Level 109 mg/dL (74-106); Potassium 3.7 mmol/L (3.5-5.1); Protein, Total 6.3 g/dL (6.4-8.2); Sodium Level 142 mmol/L (136-145)
[2021-03-11] MEDS: ASPIRIN 81 MG CHEWABLE TABLET PO SCH (07:46)
[2021-03-11] MEDS: PANTOPRAZOLE 40MG TABLET PO SCH (07:47)
[2021-03-11] MEDS: ASCORBIC ACID 500 MG TABLET PO SCH (07:47)
[2021-03-11] MEDS: NICOTINE 21 MG/PAT TD SCH (07:48)
[2021-03-11] MEDS ORDERED: POTASSIUM CL SA 10 MEQ TAB PO ONE (09:00)
[2021-03-11] MEDS: SOD FERRIC GLUC COMPLX/SUCROSE 250 MG in NA CHLORIDE 0.9% 250 ML IV SCH (09:18)
[2021-03-11] MEDS ORDERED: NA CHLORIDE 0.9% 250 ML ONE (09:54)
--- NOTE | 2021-03-11 14:29 | P.DS ---
Admission Date: 03/11/21 Discharge Date: 03/12/21 Disposition: ROUTINE DISCHARGE Discharge Condition: FAIR Reason for Admission: LOLIS - Problems (1) Iron deficiency anemia Status: Acute Brief History of Present Illness: 46-year-old male with a past medical history significant for Iron deficiency anemia, anxiety, depression presented with complaint of shortness of breath, dizzy, generalized weakness, diaphoresis and joint pains that has been ongoing for the past 1 month. 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 Patient denies GI bleed or any other signs or symptoms. Of note, patient reported that he was prescribed iron tablets he stopped taking it because of constipation. Patient hospitalized for further management. Hospital Course: Patient admitted and transfused a total of 4 units PRBC. Posttransfusion hemoglobin is up to 7.4 Stool for Hemoccult blood was negative. RBC indices indicated iron deficiency with very low MCV. Iron level low Patient noted to have severe iron deficiency and given 3 doses of IV iron. He currently has no complain. He is discharged with iron replacement-Iron polysaccharide, stool softeners and follow up with hematology-Dr. Padilla as an outpatient. Vital Signs/Physical Exam: Temp Pulse Resp BP Pulse Ox 98.2 F 76 20 121/58 L 100 03/11/21 12:00 03/11/21 12:00 03/11/21 12:00 03/11/21 12:00 03/11/21 12:00 General: Alert, In no apparent distress, Oriented x3 HEENT: Mucous membr. moist/pink, Sclerae nonicteric Neck: JVD not distended Respiratory: Clear to auscultation bilaterally, Normal air movement Cardiovascular: No edema, Regular rate/rhythm, Normal S1 S2 Gastrointestinal: Soft and benign, Non-distended, No tenderness Musculoskeletal: No swelling, No tenderness Integumentary: No rashes, No erythema Neurological: Normal strength at 5/5 x4 extr Laboratory Data at Discharge: WBC 5.90 K/uL (4.3-10.9) 03/11/21 05:33 Hgb 6.1 g/dL (13.6-17.9) L* 03/11/21 05:33 Hct 21.0 % (39.6-49.0) L D 03/11/21 05:33 Plt Count 188 K/uL (152-406) 03/11/21 05:33 PT 19.7 SECONDS (9.5-12.5) H 03/11/21 05:33 INR 1.70 03/11/21 05:33 APTT 29.2 SECONDS (24.3-36.9) 03/10/21 11:45 Sodium 142 mmol/L (136-145) 03/11/21 05:33 Potassium 3.7 mmol/L (3.5-5.1) 03/11/21 05:33 BUN 8 mg/dL (7-18) 03/11/21 05:33 Creatinine 0.59 mg/dL (0.55-1.3) 03/11/21 05:33 Glucose 109 mg/dL (74-106) H 03/11/21 05:33 Total Bilirubin 1.0 mg/dL (0.2-1.0) 03/11/21 05:33 AST 34 U/L (15-37) 03/11/21 05:33 ALT 19 U/L (12-78) 03/11/21 05:33 Alkaline Phosphatase 114 U/L (45-117) 03/11/21 05:33 Troponin I < 0.02 ng/mL (0.0-0.045) 03/10/21 18:23 Home Medications: Ascorbic Acid [Vitamin C*] 500 mg PO BID #60 tablet 03/11/21 Iron Polysaccharide Complex [Polysaccharide Iron] 150 mg PO DAILY #30 capsule 03/11/21 Pantoprazole [Protonix Tab*] 40 mg PO DAILY #30 tab 03/11/21 New Medications: Iron Polysaccharide Complex [Polysaccharide Iron] 150 mg PO DAILY #30 capsule Pantoprazole [Protonix Tab*] 40 mg PO DAILY #30 tab Ascorbic Acid [Vitamin C*] 500 mg PO BID #60 tablet Diet: Regular Activity: Ad beverley Followup: Stevie Cerna MD [Primary Care Provider] - 1-2 Weeks Mindy Caldwell MD [ACTIVE - CAN ADMIT] - 1-2 Weeks Time spent managing pt's care (in minutes): 32
[2021-03-11 15:18] VITALS: BMI 28.8
[2021-03-11 17:47] LABS: Hematocrit 23.3 % (39.6-49.0)
--- NOTE | 2021-03-11 18:11 | EKG ---
Test Date: 2021-03-10 Test Time: 11:28:01 Vocational Counselor: CHARMAINE MEASUREMENT RESULTS: Intervals: Rate: 86 VT: 166 QRSD: 90 QT: 378 QTc: 452 [place]: P: 39 VT: 166 QRS: 2 T: 30 INTERPRETIVE STATEMENTS: Normal sinus rhythm Cannot rule out Anterior infarct, age undetermined Abnormal ECG Compared to ECG 08/24/2020 16:20:42 No significant changes Electronically Signed On 03-11-21 18:06:11 CDT by Rojelio Ralph
--- NOTE | 2021-03-11 18:34 | P.PN ---
Subjective Date of Service: 03/11/21 Chief Complaint: LOLIS Patient currently has no complain. Status post 3 units PRBC transfusion. He denies any blood per rectum or melena. Physical Examination - Vital Signs Temperature: 98.2 F Blood Pressure: 121/58 Pulse: 76 Respirations: 20 Pulse Ox (%): 98 - Physical Exam General: Alert, In no apparent distress, Oriented x3 HEENT: Mucous membr. moist/pink Neck: JVD not distended Respiratory: Clear to auscultation bilaterally, Normal air movement Cardiovascular: No edema, Regular rate/rhythm, Normal S1 S2 Gastrointestinal: Normal bowel sounds, Soft and benign, Non-distended, No ascites Musculoskeletal: No swelling, No tenderness Integumentary: No rashes, No cyanosis Neurological: Normal strength at 5/5 x4 extr Assessment And Plan - Current Problems (Diagnosis) (1) Iron deficiency anemia Current Visit: No Status: Acute (2) Hypoalbuminemia Current Visit: Yes Status: Acute - Plan Cause of iron deficiency is unclear. Stool for occult blood is negative. Posttransfusion hemoglobin of 6.9. Will transfuse 1 more PRBC for a total of 4 units. Outpatient follow up with hematology for further evaluation.
[2021-03-11] MEDS ORDERED: NA CHLORIDE 0.9% 100 ML ONE (21:01)
[2021-03-12 01:45] LABS: Hematocrit 24.7 % (39.6-49.0)
[2021-03-12 01:50] LABS: BUN Blood Urea Nitrogen 5 mg/dL (7-18); Bicarbonate 25 mmol/L (21-32); Glucose Level 153 mg/dL (74-106); Potassium 3.5 mmol/L (3.5-5.1); Sodium Level 142 mmol/L (136-145)
[2021-03-12] MEDS ORDERED: POTASSIUM 25 MEQ EFFERV TAB PO ONE (09:00)
[2021-03-12] MEDS: NICOTINE 21 MG/PAT TD SCH (09:00)
[2021-03-12] MEDS: ASCORBIC ACID 500 MG TABLET PO SCH (09:51)
[2021-03-12] MEDS: ASPIRIN 81 MG CHEWABLE TABLET PO SCH (09:51)
[2021-03-12] MEDS: PANTOPRAZOLE 40MG TABLET PO SCH (09:51)
[2021-03-12] MEDS: SOD FERRIC GLUC COMPLX/SUCROSE 250 MG in NA CHLORIDE 0.9% 250 ML IV SCH (09:53)
[2021-03-12 10:38] VITALS: O2SAT 97
[2021-03-12 12:35] VITALS: BP 123/58; TEMP 98.5
== END 2021-03-12 13:30 | disposition home or self-care (01) | DRG 812 ==
LOC: ER 10:35 → ERHOLD 15:50 → 2ND 16:55 → OBSVTOIN 03-11 15:02
PROVIDERS: ADMIT Hospitalist; ATTEND Hospitalist
PROC: 30233N1 Transfusion of Nonautologous Red Blood Cells into Peripheral Vein, Percutaneous Approach (ICD-10-PCS; principal; 2021-03-10)
DX: D50.9 Iron deficiency anemia, unspecified (principal); F41.8 Other specified anxiety disorders; E87.6 Hypokalemia; F17.210 Nicotine dependence, cigarettes, uncomplicated; F10.10 Alcohol abuse, uncomplicated; E88.09 Other disorders of plasma-protein metabolism, not elsewhere classified; Z20.822 Contact with and (suspected) exposure to COVID-19
CPT/HCPCS: 36415; 36430; 80048; 80053; 81003; 82274; 82607; 82728; 82746; 83540; 83880; 84439; 84443; 84466; 84484; 85014; 85018; 85025; 85044; 85610; 85730; 86850; 86900; 86901; 93005; 99285; G0378; J2916; J7040; J7050; P9016; U0003

== ENCOUNTER 2021-06-23 07:14 | Observation (INO) | payer OTHER ==
[2021-06-23] MEDS ORDERED: PANTOPRAZOLE 40 MG INJ ONE (09:05)
[2021-06-23] MEDS ORDERED: MORPHINE 4 MG/ML SYR ONE (09:05)
[2021-06-23] MEDS ORDERED: ONDANSETRON 4 MG/2 ML VIAL ONE (09:05)
[2021-06-23] MEDS ORDERED: NA CHLORIDE 0.9% 1,000 ML ONE (09:05)
[2021-06-23 09:13] LABS: Absolute Lymphocytes (CBC) 1.7 K/uL (0.7-4.9); Hematocrit 23.6 % (39.6-49.0); MPV 8.4 fL (7.6-11.3); Protime INR 1.52; RBC Red Blood Cell Count 3.75 M/uL (4.33-5.43)
[2021-06-23 09:32] LABS: ALT/SGPT 29 U/L (12-78); AST/SGOT 53 U/L (15-37); Albumin 2.2 g/dL (3.4-5.0); Alkaline Phosphatase 134 U/L (45-117); BUN Blood Urea Nitrogen 7 mg/dL (7-18); Bicarbonate 25 mmol/L (21-32); Bilirubin Direct 0.7 mg/dL (0-0.2); Bilirubin Total 1.4 mg/dL (0.2-1.0); Glucose Level 101 mg/dL (74-106); Lipase 95 U/L (73-393); NT PRO-BNP 27 pg/mL (<125); Potassium 3.6 mmol/L (3.5-5.1); Protein, Total 6.7 g/dL (6.4-8.2); Sodium Level 138 mmol/L (136-145)
--- NOTE | 2021-06-23 09:39 | RAD REPORT ---
EXAM DESCRIPTION: US - Abdomen Exam Limited - 06/23/2021 9:21 am CLINICAL HISTORY: EPIGASTRIC PAIN COMPARISON: CT-STONE PROTOCOL dated 02/08/2008 FINDINGS: Cirrhotic liver morphology. The gallbladder wall is thickened measuring 8 millimeters. No stones are identified. The common bile duct is mildly dilated at 6 millimeters. No stones are seen. M oderate ascites is present. IMPRESSION: Cirrhotic liver morphology with ascites. Gallbladder wall thickening is probably related to underlying liver disease. No stones identified. Mild extrahepatic biliary ductal dilatation is pr esent. MRCP could better evaluate the duct if there is concern for choledocholithiasis.
--- NOTE | 2021-06-23 10:04 | RAD REPORT ---
EXAM DESCRIPTION: CTAbdomen Pelvis W Contrast - 06/23/2021 9:53 am CLINICAL HISTORY: ABD PAIN COMPARISON: <Comparisons> TECHNIQUE: CT of the abdomen and pelvis was performed. All CT scans are performed using dose optimization technique as appropriate and may include automated exposure control or mA/KV adjustment according to patient size. FINDINGS: Lower chest: No acute abnormality. Liver: Cirrhotic liver morphology. Hepatic steatosis is present. No arterially enhancing lesions are identified. Numerous small hypoattenuating lesions are seen. Biliary: No biliary ductal dilatation. Stomach: No significant focal abnormality. Duodenum: No significant focal abnormality. Pancreas: No significant abnormality. Spleen: Splenomegaly. Adrenal: No suspicious lesions. Kidney/ureter: No hydronephrosis. No renal calculi. Retroperitoneum: No retroperitoneal adenopathy. Vascular: No aneurysm. Atherosclerosis. Bowel: No significant focal abnormality. Peritoneum: Moderate ascites. Small fat containing inguinal hernias. Bladder: Grossly unremarkable. Reproductive: No adnexal masses. Bones: No acute fracture. Other: n/a IMPRESSION: Cirrhotic liver morphology with evidence of portal hypertension including splenomegaly a nd moderate ascites. No arterially enhancing lesions are present to suspect hepatocellular carcinoma. The patient will require surveillance imaging, however. No acute findings otherwise.
--- NOTE | 2021-06-23 10:25 | RAD REPORT ---
EXAM DESCRIPTION: RAD - Chest Single View - 06/23/2021 10:19 am CLINICAL HISTORY: Abdominal distention;Chest pain COMPARISON: Chest Single View dated 08/24/2020; CHEST PA AND LAT 2 VIEW dated 06/16/2012; Abdomen Pe lvis W Contrast dated 06/23/2021 FINDINGS: Lines: None. Lungs: No evidence of edema or pneumonia. Pleural: No significant pleural effusions or pneumothorax. Cardiac: The heart size is within normal limits. Bones: No acute fractures. Other: IMPRESSION: No acute cardiopulmonary disease.
--- NOTE | 2021-06-23 10:29 | ER ---
Nurse's Notes [facility] Name: [facility] Jr Age: 46 yrs Sex: Male : 1975 Arrival Date: 06/23/2021 Time: 07:15 Bed 18 Private MD: Diagnosis: Anemia, unspecified;Abdominal pain, Generalized;Epigastric abdominal tenderness;Alcoholic cirrhosis of liver with ascites;Ventricular tachycardia Presentation: 06/23 07:27 Chief complaint: Patient states: for about a week pt has had Epigastric pain and Left vg1 flank pain. States 'at times the pain is worse after eating'. Denies NVD. Coronavirus screen: Vaccine status: Patient reports being unvaccinated. Client denies travel out of the [place] in the last 14 days. Ebola Screen: Patient negative for fever greater than or equal to 101.5 degrees Fahrenheit, and additional compatible Ebola Virus Disease symptoms. Initial Sepsis Screen: Does the patient meet any 2 criteria? No. Patient's initial sepsis screen is negative. Does the patient have a suspected source of infection? No. Patient's initial sepsis screen is negative. Risk Assessment: Do you want to hurt yourself or someone else? Patient reports no desire to harm self or others. Onset of symptoms was June 16, 2021. 07:27 Method Of Arrival: Ambulatory vg1 07:27 Acuity: LAWRENCE 3 vg1 Triage Assessment: 07:29 General: Appears in no apparent distress. uncomfortable, Behavior is calm, cooperative. vg1 Pain: Complains of pain in epigastric area and posterior aspect of left lateral abdomen Pain currently is 6 out of 10 on a pain scale. GI: Abdomen is round non-distended, Patient currently denies diarrhea, nausea, vomiting. Historical: - Allergies: 07:29 No Known Allergies; vg1 - Home Meds: 07:29 pantoprazole oral [Active]; vg1 - PMHx: 07:29 Anxiety; Depression; vg1 - Immunization history:: Client reports having NOT received the Covid vaccine. - Social history:: Smoking status: Patient reports the use of cigarette tobacco products, denies chronic smoking, but will smoke occasionally. - Family history:: not pertinent. Screenin:10 Abuse screen: Denies threats or abuse. Denies injuries from another. Nutritional ww screening: No deficits noted. Tuberculosis screening: No symptoms or risk factors identified. Fall Risk None identified. Assessment: 09:10 General: Appears well groomed, well developed, Behavior is calm, cooperative, ww appropriate for age. Pain: Complains of pain in right upper quadrant and left upper quadrant. Neuro: Level of Consciousness is awake, alert, obeys commands, Oriented to person, place, time, situation, Gait is steady, Speech is normal. Cardiovascular: Denies chest pain, Capillary refill < 3 seconds Patient's skin is warm and dry. Respiratory: Airway is patent Respiratory effort is even, unlabored, Respiratory pattern is regular, symmetrical. GI: Abdomen is distended, Bowel sounds present X 4 quads. Abd is soft Abdomen is tender to palpation in right upper quadrant and left upper quadrant Reports upper abdominal pain, nausea. : No deficits noted. No signs and/or symptoms were reported regarding the genitourinary system. EENT: No deficits noted. No signs and/or symptoms were reported regarding the EENT system. Derm: Skin is intact, Skin is dry, Skin temperature is warm. Musculoskeletal: No deficits noted. No signs and/or symptoms reported regarding the musculoskeletal system. 10:11 Reassessment: Patient appears in no apparent distress at this time. No changes from ww previously documented assessment. Patient and/or family updated on plan of care and expected duration. Pain level reassessed. Patient is alert, oriented x 3, equal unlabored respirations, skin warm/dry/pink. 12:00 Reassessment: No changes from previously documented assessment. Patient and/or family bp updated on plan of care and expected duration. Pain level reassessed. PT TO BE ADMITTED. 14:00 Reassessment: CONSENT FOR BLOOD SIGNED AND WITNESSED. bp 14:30 Reassessment: No changes from previously documented assessment. Patient and/or family bp updated on plan of care and expected duration. Pain level reassessed. PT ON NIBP, CONTINUOUS SP02 AND EKG. 1ST UNIT PRBC TRANSFUSING. 17:30 Reassessment: No changes from previously documented assessment. Patient and/or family bp updated on plan of care and expected duration. Pain level reassessed. 2ND PRBC STARTED. 19:23 Reassessment: Patient appears in no apparent distress at this time. No changes from lg3 previously documented assessment. Patient and/or family updated on plan of care and expected duration. Pain level reassessed. Patient is alert, oriented x 3, equal unlabored respirations, skin warm/dry/pink. Patient states feeling better. Neuro: Level of Consciousness is awake, alert, obeys commands, Oriented to person, place, time, situation. Cardiovascular: Capillary refill < 3 seconds Patient's skin is warm and dry. GI: Abdomen is distended. Derm: Skin is intact, Skin is dry. Musculoskeletal: No deficits noted. No signs and/or symptoms reported regarding the musculoskeletal system. Vital Signs: 07:27 BP 146 / 93; Pulse 108; Resp 17; Temp 99.5; Pulse Ox 100% ; Weight 80.74 kg; Height 5 vg1 ft. 7 in. (170.18 cm); Pain 6/10; 10:11 BP 139 / 73; Pulse 89; Resp 16; Pulse Ox 100% on R/A; ww 12:00 BP 141 / 73; Pulse 90; Resp 16; Pulse Ox 99% ; bp 14:00 BP 122 / 78; Pulse 75; Resp 19; Pulse Ox 99% ; bp 16:00 BP 132 / 69; Pulse 69; Resp 21; Pulse Ox 99% ; bp 18:00 BP 119 / 63; Pulse 71; Resp 17; Pulse Ox 100% ; bp 19:40 BP 129 / 84; Pulse 73; Resp 18 S; Pulse Ox 100% on R/A; lg3 07:27 Body Mass Index 27.88 (80.74 kg, 170.18 cm) vg1 Tan Coma Score: 10:11 Eye Response: spontaneous(4). Verbal Response: oriented(5). Motor Response: obeys ww commands(6). Total: 15. ED Course: 07:15 Patient arrived in ED. am2 07:29 Triage completed. vg1 07:29 Arm band placed on. vg1 08:40 Sagrario Rodriguez is Primary Nurse. tk1 08:40 Primary Nurse role handed off by Sagrario Rodriguez bp 08:40 Hugo Tafoya, RN is Primary Nurse. bp 08:40 Patient placed in an exam room, on a stretcher. ll1 08:55 Obey Carlos MD is Attending Physician. vernon 09:10 Patient has correct armband on for positive identification. Placed in gown. Bed in low ww position. Call light in reach. Side rails up X 1. court monitor on. Pulse ox on. NIBP on. 09:17 US Abdomen Limited In Process Unspecified. EDMS 09:30 Inserted saline lock: 20 gauge in left antecubital area, using aseptic technique. Blood bp collected. 09:31 CT Abd/Pelvis - IV Contrast Only Sent. bp 09:53 CT Abd/Pelvis - IV Contrast Only In Process Unspecified. EDMS 10:19 XRAY Chest (1 view) In Process Unspecified. EDMS 10:25 Rajat Marvin DO is Hospitalizing Provider. vernon 13:37 COVID-19 SARS RT PCR (Document "Date of Onset" if Symptomatic) Sent. ww 19:25 No provider procedures requiring assistance completed. lg3 21:27 Patient admitted, IV remains in place. lg3 Administered Medications: 09:30 Drug: NS 0.9% 1000 ml Route: IV; Rate: 1 bolus; Site: left antecubital; bp 09:30 Drug: Zofran (Ondansetron) 4 mg Route: IVP; Site: left antecubital; bp 19:26 Follow up: Response: No adverse reaction lg3 09:30 Drug: ProTONIX (pantoprazole) 40 mg Route: IVP; Site: left antecubital; bp 16:58 Follow up: Response: No adverse reaction bp 09:31 Drug: morphine 4 mg Route: IVP; Site: left antecubital; bp 19:26 Follow up: Response: No adverse reaction; RASS: Alert and Calm (0) lg3 09:33 Not Given (Duplicate Order): ProTONIX (pantoprazole) 40 mg IVP once bp 10:30 Drug: ProTONIX (pantoprazole) 8 mg/hr Route: IV; Rate: 25 ml/hr; Site: left antecubital;bp 22:16 Follow up: Response: No adverse reaction; IV Intake: 250ml lg3 11:00 Drug: Thiamine 100 mg Route: IV; Rate: bolus; Site: right forearm; bp 13:15 Follow up: IV Status: Completed infusion; IV Intake: 50ml bp 11:00 Drug: Lactulose 30 grams Volume: 45 ml; Route: PO; bp 13:15 Follow up: Response: No adverse reaction bp 11:00 Drug: Vitamin K1 (phytonadione) 10 mg Route: Sub-Q; Site: right upper arm; bp 13:15 Follow up: Response: No adverse reaction bp 11:00 Drug: Rocephin (cefTRIAXone) 1 grams Route: IV; Rate: per protocol; Site: right forearm;bp 13:14 Follow up: IV Status: Completed infusion; IV Intake: 50ml bp 19:26 Follow up: Response: No adverse reaction lg3 13:47 Drug: Lopressor (metoprolol TARTRATE) 50 mg Route: PO; ww 16:57 Follow up: Response: No adverse reaction bp 19:25 Follow up: Response: No adverse reaction lg3 Intake: 13:14 IV: 50ml; Total: 50ml. bp 13:15 IV: 50ml; Total: 100ml. bp 22:16 IV: 250ml; Total: 350ml. lg3 Outcome: 10:28 Decision to Hospitalize by Provider. vernon 21:27 Admitted to Med/surg lg3 21:27 Condition: improved 21:27 Instructed on the need for admit. 22:22 Patient left the ED. lg3 Signatures: Dispatcher [employer] EDMS Obey Carlos MD MD cha Moreno, Amanda am2 Hugo Tafoya, RN RN bp Almaz Naidu, RN RN lg3 Britni Albert, RN RN vg1 Basil Carrasco RN RN ll1 Kimberly Dean, RN RN Sagrario Chakraborty tk1 Corrections: (The following items were deleted from the chart) 22:13 19:34 BP 81 / 60; Pulse 73bpm; Resp 18bpm; Spontaneous; Pulse Ox 99% RA; lg3 lg3
--- NOTE | 2021-06-23 10:29 | EDPHYS ---
Physician Documentation [facility] Name: Willie Hayes Jr Age: 46 yrs Sex: Male : 1975 Arrival Date: 06/23/2021 Time: 07:15 Bed 18 Private MD: ED Physician Obey Carlos HPI: 06/23 09:41 This 46 yrs old Male presents to ER via Ambulatory with complaints of vernon Abdominal Pain. 09:41 The patient presents with abdominal pain in the upper abdomen, in the lower abdomen, vernon abdominal distention in the upper abdomen, in the lower abdomen. Onset: The symptoms/episode began/occurred 3 day(s) ago. The symptoms do not radiate. Associated signs and symptoms: none. The symptoms are described as constant, crampy. Modifying factors: The symptoms are alleviated by nothing, the symptoms are aggravated by food. Severity of pain: At its worst the pain was moderate in the emergency department the pain is unchanged. The patient has not experienced similar symptoms in the past. Historical: - Allergies: 07:29 No Known Allergies; vg1 - Home Meds: 07:29 pantoprazole oral [Active]; vg1 - PMHx: 07:29 Anxiety; Depression; vg1 - Immunization history:: Client reports having NOT received the Covid vaccine. - Social history:: Smoking status: Patient reports the use of cigarette tobacco products, denies chronic smoking, but will smoke occasionally. - Family history:: not pertinent. ROS: 09:41 Constitutional: Negative for fever, chills, and weight loss, Eyes: Negative for injury, vernon pain, redness, and discharge, ENT: Negative for injury, pain, and discharge, Neck: Negative for injury, pain, and swelling, Respiratory: Negative for shortness of breath, cough, wheezing, and pleuritic chest pain, Back: Negative for injury and pain, : Negative for injury, bleeding, discharge, and swelling, MS/Extremity: Negative for injury and deformity, Skin: Negative for injury, rash, and discoloration, Neuro: Negative for headache, weakness, numbness, tingling, and seizure, Psych: Negative for depression, anxiety, suicide ideation, homicidal ideation, and hallucinations, Allergy/Immunology: Negative for hives, rash, and allergies, Endocrine: Negative for neck swelling, polydipsia, polyuria, polyphagia, and marked weight changes, Hematologic/Lymphatic: Negative for swollen nodes, abnormal bleeding, and unusual bruising. 09:41 Cardiovascular: Positive for chest pain. 09:41 Abdomen/GI: Positive for abdominal pain, of the epigastric area, right upper quadrant and left upper quadrant. Exam: 09:41 Constitutional: This is a well developed, well nourished patient who is awake, alert, vernon and in no acute distress. Head/Face: Normocephalic, atraumatic. Eyes: Pupils equal round and reactive to light, extra-ocular motions intact. Lids and lashes normal. Conjunctiva and sclera are non-icteric and not injected. Cornea within normal limits. Periorbital areas with no swelling, redness, or edema. ENT: Nares patent. No nasal discharge, no septal abnormalities noted. Tympanic membranes are normal and external auditory canals are clear. Oropharynx with no redness, swelling, or masses, exudates, or evidence of obstruction, uvula midline. Mucous membranes moist. Neck: Trachea midline, no thyromegaly or masses palpated, and no cervical lymphadenopathy. Supple, full range of motion without nuchal rigidity, or vertebral point tenderness. No Meningismus. Chest/axilla: Normal chest wall appearance and motion. Nontender with no deformity. No lesions are appreciated. Cardiovascular: Regular rate and rhythm with a normal S1 and S2. No gallops, murmurs, or rubs. Normal PMI, no JVD. No pulse deficits. Respiratory: Lungs have equal breath sounds bilaterally, clear to auscultation and percussion. No rales, rhonchi or wheezes noted. No increased work of breathing, no retractions or nasal flaring. Back: No spinal tenderness. No costovertebral tenderness. Full range of motion. Male : Normal genitalia with no discharge or lesions. Skin: Warm, dry with normal turgor. Normal color with no rashes, no lesions, and no evidence of cellulitis. MS/ Extremity: Pulses equal, no cyanosis. Neurovascular intact. Full, normal range of motion. Neuro: Awake and alert, GCS 15, oriented to person, place, time, and situation. Cranial nerves II-XII grossly intact. Motor strength 5/5 in all extremities. Sensory grossly intact. Cerebellar exam normal. Normal gait. Psych: Awake, alert, with orientation to person, place and time. Behavior, mood, and affect are within normal limits. 09:41 Abdomen/GI: Inspection: distension, that is mild, Bowel sounds: active, Palpation: moderate abdominal tenderness, in the epigastric area, right upper quadrant and left upper quadrant, Rectal exam: Prostate: normal, rectal tone normal, Stool: normal, guaiac negative, hemorrhoid(s), are not appreciated, mass, is not appreciated, swelling, is not appreciated, tenderness, is not appreciated, fecal impaction, is not appreciated, Liver: no appreciated palpable abnormalities, Hernia: not appreciated. 09:44 ECG was reviewed by the Attending Physician. [facility] Vital Signs: 07:27 BP 146 / 93; Pulse 108; Resp 17; Temp 99.5; Pulse Ox 100% ; Weight 80.74 kg; Height 5 vg1 ft. 7 in. (170.18 cm); Pain 6/10; 10:11 BP 139 / 73; Pulse 89; Resp 16; Pulse Ox 100% on R/A; ww 12:00 BP 141 / 73; Pulse 90; Resp 16; Pulse Ox 99% ; bp 14:00 BP 122 / 78; Pulse 75; Resp 19; Pulse Ox 99% ; bp 16:00 BP 132 / 69; Pulse 69; Resp 21; Pulse Ox 99% ; bp 18:00 BP 119 / 63; Pulse 71; Resp 17; Pulse Ox 100% ; bp 19:40 BP 129 / 84; Pulse 73; Resp 18 S; Pulse Ox 100% on R/A; lg3 07:27 Body Mass Index 27.88 (80.74 kg, 170.18 cm) vg1 [place] Coma Score: 10:11 Eye Response: spontaneous(4). Verbal Response: oriented(5). Motor Response: obeys ww commands(6). Total: 15. MDM: 08:55 Patient medically screened. vernon 09:45 Differential diagnosis: bowel obstruction, cholecystitis, Cholelithiasis, vernon diverticulitis, gastritis, gastroesophageal reflux disease, non-specific abd pain, pancreatitis, Peptic Ulcer Disease, Perf. Duodenal Ulcer, Perf. Gastric Ulcer, Peritonitis, urinary tract infection. Data reviewed: vital signs, nurses notes, lab test result(s), EKG, radiologic studies, CT scan, plain films, ultrasound. Data interpreted: pvc monitor: rate is 108 beats/min, rhythm is regular, Pulse oximetry: on room air is 100 %. Test interpretation: by ED physician or midlevel provider: ECG, plain radiologic studies. Counseling: I had a detailed discussion with the patient and/or guardian regarding: the historical points, exam findings, and any diagnostic results supporting the discharge/admit diagnosis, lab results, radiology results. 06/23 08:57 Order name: Basic Metabolic Panel; Complete Time: 09:39 [facility] 06/23 08:57 Order name: CBC with Diff; Complete Time: 12:08 [facility] 06/23 08:57 Order name: LFT's; Complete Time: 09:39 [facility] 06/23 08:57 Order name: Magnesium; Complete Time: 09:39 [facility] 06/23 08:57 Order name: NT PRO-BNP; Complete Time: 09:39 [facility] 06/23 08:57 Order name: PT-INR; Complete Time: 09:39 [facility] 06/23 08:57 Order name: Troponin HS; Complete Time: 09:39 [facility] 06/23 08:57 Order name: Lipase; Complete Time: 09:39 [facility] 06/23 09:28 Order name: PRBC [facility] 06/23 09:28 Order name: AMMONIA; Complete Time: 10:23 [facility] 06/23 09:30 Order name: ABO/RH typing [facility] 06/23 09:30 Order name: Antibody Screen [facility] 06/23 09:38 Order name: Occult Blood--Ancillary 06/23 08:57 Order name: XRAY Chest (1 view); Complete Time: 10:28 [facility] 06/23 08:57 Order name: US Abdomen Limited; Complete Time: 10:23 [facility] 06/23 08:57 Order name: CT Abd/Pelvis - IV Contrast Only; Complete Time: 10:23 [facility] 06/23 09:44 Order name: Cholangiogram [facility] 06/23 10:30 Order name: Blood Culture Adult (2) [facility] 06/23 10:30 Order name: Lactate; Complete Time: 12:08 [facility] 06/23 10:30 Order name: Procalcitonin [facility] 06/23 10:46 Order name: COVID-19 SARS RT PCR (Document "Date of Onset" if Symptomatic) 06/23 10:47 Order name: SARS-COV-2 RT PCR [facility] 06/23 10:49 Order name: Manual Differential; Complete Time: 12:08 [facility] 06/23 08:57 Order name: EKG; Complete Time: 08:58 [facility] 06/23 08:57 Order name: Cardiac monitoring; Complete Time: 09:08 [facility] 06/23 08:57 Order name: EKG - Nurse/Tech; Complete Time: 09:44 [facility] 06/23 08:57 Order name: IV Saline Lock; Complete Time: 08:59 [facility] 06/23 08:57 Order name: Labs collected and sent; Complete Time: 08:59 [facility] 06/23 08:57 Order name: O2 Per Protocol; Complete Time: 08:59 [facility] 06/23 08:57 Order name: O2 Sat Monitoring; Complete Time: 08:59 [facility] 06/23 09:39 Order name: IV Saline Lock - Large Bore; Complete Time: 12:22 [facility] EC:44 Rate is 86 beats/min. Rhythm is regular. QRS [place] is Normal. AL interval is normal. QRS vernon interval is normal. QT interval is normal. No Q waves. T waves are Normal. No ST changes noted. Clinical impression: Normal ECG and No evidence of ischemia. Interpreted by me. Reviewed by me. Administered Medications: 09:30 Drug: NS 0.9% 1000 ml Route: IV; Rate: 1 bolus; Site: left antecubital; bp 09:30 Drug: Zofran (Ondansetron) 4 mg Route: IVP; Site: left antecubital; bp 19:26 Follow up: Response: No adverse reaction lg3 09:30 Drug: ProTONIX (pantoprazole) 40 mg Route: IVP; Site: left antecubital; bp 16:58 Follow up: Response: No adverse reaction bp 09:31 Drug: morphine 4 mg Route: IVP; Site: left antecubital; bp 19:26 Follow up: Response: No adverse reaction; RASS: Alert and Calm (0) lg3 09:33 Not Given (Duplicate Order): ProTONIX (pantoprazole) 40 mg IVP once bp 10:30 Drug: ProTONIX (pantoprazole) 8 mg/hr Route: IV; Rate: 25 ml/hr; Site: left antecubital;bp 22:16 Follow up: Response: No adverse reaction; IV Intake: 250ml lg3 11:00 Drug: Thiamine 100 mg Route: IV; Rate: bolus; Site: right forearm; bp 13:15 Follow up: IV Status: Completed infusion; IV Intake: 50ml bp 11:00 Drug: Lactulose 30 grams Volume: 45 ml; Route: PO; bp 13:15 Follow up: Response: No adverse reaction bp 11:00 Drug: Vitamin K1 (phytonadione) 10 mg Route: Sub-Q; Site: right upper arm; bp 13:15 Follow up: Response: No adverse reaction bp 11:00 Drug: Rocephin (cefTRIAXone) 1 grams Route: IV; Rate: per protocol; Site: right forearm;bp 13:14 Follow up: IV Status: Completed infusion; IV Intake: 50ml bp 19:26 Follow up: Response: No adverse reaction lg3 13:47 Drug: Lopressor (metoprolol TARTRATE) 50 mg Route: PO; ww 16:57 Follow up: Response: No adverse reaction bp 19:25 Follow up: Response: No adverse reaction lg3 Disposition Summary: 06/23/21 10:28 Hospitalization Ordered Hospitalization Status: Inpatient Admission vernon Provider: Rajat Marvin vernon Condition: Stable vernon Problem: new vernon Symptoms: have improved vernon Bed/Room Type: Standard vernon Location: Telemetry/MedSurg (Inpatient)(06/23/21 17:16) bd Room Assignment: 203(06/23/21 17:16) bd Diagnosis - Anemia, unspecified vernon - Abdominal pain, Generalized vernon - Epigastric abdominal tenderness vernon - Alcoholic cirrhosis of liver with ascites vernon - Ventricular tachycardia vernon Forms: - Medication Reconciliation Form vernon - SBAR form vernon Signatures: Dispatcher [employer] EDMS Mamie Sánchez Corey, MD MD cha Peltier, Brian RN Britni Corral RN RN vg1 Kimberly Dean RN RN ww Gibson, Lacie RN lg3 Corrections: (The following items were deleted from the chart) 10:10 09:28 TYPE AND SCREEN+[id number].BRZ ordered. EDMS EDMS 15:13 10:28 Telemetry/MedSurg (Inpatient) vernon bd 15:13 10:28 vernon bd 17:16 15:13 [facility] ER HOLD bd bd 17:16 15:13 ERHOLD- bd bd
[2021-06-23] MEDS ORDERED: PANTOPRAZOLE INJ 80 MG in NA CHLORIDE 0.9% 250 ML IV ONE (10:30)
[2021-06-23 10:49] LABS: Anisocytosis 2+; Blood Morphology Comment NOTED (NOT SEEN); Hypochromasia 2+; Platelet Estimate ADEQ
--- NOTE | 2021-06-23 11:34 | P.HP ---
Certification for Inpatient Patient admitted to: Observation With expected LOS: <2 Midnights Patient will require the following post-hospital care: None Practitioner: I am a practitioner with admitting privileges, knowledge of patient current condition, hospital course, and medical plan of care. Services: Services provided to patient in accordance with Admission requirements found in Title 42 Section 412.3 of the Code of Federal Regulations Patient History Date of Service: 06/23/21 Primary Care Provider: Dr. Kerr; GI-Dr. Hardwick Reason for admission: epigastric pain History of Present Illness: 46-year-old male with history of GERD, AVM, iron deficiency anemia. Patient reported epigastric pain that started about 1 week ago. He has been having some complaints of fatigue. Patient denies any melena, hematic emesis. Patient has been transfused in the past for blood. Patient had a colonoscopy and EGD last year with GI. He was found to have GERD with AVM. He was post to follow-up. He has not followed up since that time. Patient also drinks a sixpack daily. In the ER patient was evaluated. Hemoglobin 6.5. White count 8.0. Sodium 138, potassium 3.6. BUN of 7, GFR greater than 90. Glucose 101. Total bilirubin 1.4, AST 53, ALT 29, ammonia level 60. Lipase unremarkable. CT scan revealed cirrhotic liver with splenomegaly and ascites. Portal hypertension noted. Patient doing well at this time. Patient admitted for transfusion. Allergies No Known Allergies Allergy (Verified 08/24/20 22:54) Home medications list reviewed: Yes Home Medications: Ascorbic Acid [Vitamin C*] 500 mg PO BID #60 tablet 03/11/21 Iron Polysaccharide Complex [Polysaccharide Iron] 150 mg PO DAILY #30 capsule 03/11/21 Pantoprazole [Protonix Tab*] 40 mg PO DAILY #30 tab 03/11/21 - Past Medical/Surgical History Diabetic: No -: Anemia of chronic disease with iron deficiency -: GERD with AVM -: Alcohol abuse -: none Psychosocial/ Personal History: Patient is . 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 - Family History Family History: Reviewed- Non-Contributory - Family History Mother -: Cancer Notes: Breast Cancer - Social History Smoking Status: Never smoker Alcohol use: Yes CD- Drugs: No Caffeine use: Yes Place of Residence: Home Review of Systems General: As per HPI Eyes: Unremarkable ENT: Unremarkable Respiratory: Unremarkable Cardiovascular: Unremarkable Gastrointestinal: Abdominal Pain Genitourinary: Unremarkable Musculoskeletal: Unremarkable Integumentary: Unremarkable Neurological: Unremarkable Lymphatics: Unremarkable Physical Examination - Studies Laboratory Data (last 24 hrs) 06/23/21 09:00: PT 17.5 H, INR 1.52 06/23/21 09:00: WBC 8.00, Hgb 6.5 L*, Hct 23.6 L, Plt Count 212 06/23/21 09:00: Sodium 138, Potassium 3.6, BUN 7, Creatinine 0.69, Glucose 101, Magnesium 3.0 H D, Total Bilirubin 1.4 H, AST 53 H, ALT 29, Alkaline Phosphatase 134 H, Lipase 95 Assessment and Plan - Plan COVID: Negative CT scan abdomen: COMPARISON: <Comparisons> TECHNIQUE: CT of the abdomen and pelvis was performed. All CT scans are performed using dose optimization technique as appropriate and may include automated exposure control or mA/KV adjustment according to patient size. FINDINGS: Lower chest: No acute abnormality. Liver: Cirrhotic liver morphology. Hepatic steatosis is present. No arterially enhancing lesions are identified. Numerous small hypoattenuating lesions are seen. Biliary: No biliary ductal dilatation. Stomach: No significant focal abnormality. Duodenum: No significant focal abnormality. Pancreas: No significant abnormality. Spleen: Splenomegaly. Adrenal: No suspicious lesions. Kidney/ureter: No hydronephrosis. No renal calculi. Retroperitoneum: No retroperitoneal adenopathy. Vascular: No aneurysm. Atherosclerosis. Bowel: No significant focal abnormality. Peritoneum: Moderate ascites. Small fat containing inguinal hernias. Bladder: Grossly unremarkable. Reproductive: No adnexal masses. Bones: No acute fracture. IMPRESSION: Cirrhotic liver morphology with evidence of portal hypertension including splenomegaly and moderate ascites. No arterially enhancing lesions are present to suspect hepatocellular carcinoma. The patient will require surveillance imaging, however. No acute findings otherwise. Abdominal ultrasound: COMPARISON: CT-STONE PROTOCOL dated 02/08/2008 FINDINGS: Cirrhotic liver morphology. The gallbladder wall is thickened measuring 8 millimeters. No stones are identified. The common bile duct is mildly dilated at 6 millimeters. No stones are seen. Moderate ascites is present. IMPRESSION: Cirrhotic liver morphology with ascites. Gallbladder wall thickening is probably related to underlying liver disease. No stones identified. Mild extrahepatic biliary ductal dilatation is present. MRCP could better evaluate the duct if there is concern for choledocholithiasis. CXR: COMPARISON: Chest Single View dated 08/24/2020; CHEST PA AND LAT 2 VIEW dated 06/16/2012; Abdomen Pelvis W Contrast dated 06/23/2021 FINDINGS: Lines: None. Lungs: No evidence of edema or pneumonia. Pleural: No significant pleural effusions or pneumothorax. Cardiac: The heart size is within normal limits. Bones: No acute fractures. IMPRESSION: No acute cardiopulmonary disease. Physical Exam: GENERAL: The patient is a well-developed, well-nourished, in no apparent distress. Alert and oriented x3. VITAL SIGNS: Reviewed HEENT: Head is normocephalic and atraumatic. Extraocular muscles are intact. Pupils are equal, round, and reactive to light and accommodation. Nares appeared normal. Mouth is well hydrated and without lesions. Mucous membranes are moist. NECK: Supple. No carotid bruits. No lymphadenopathy or thyromegaly. LUNGS: Clear to auscultation. No crackles or wheezes are heard. HEART: Regular rate and rhythm, no appreciable gallops, rubs, murmurs or extra heart sounds ABDOMEN: Soft, nontender, and nondistended. Positive bowel sounds. No hepatosplenomegaly was noted. EXTREMITIES: Without any cyanosis, clubbing, rash, lesions or peripheral edema. NEUROLOGIC: The patient is oriented to person, place and time. Strength and sensation are grossly intact. Face is symmetric. SKIN: Normal color, turgor and temperature. No ulcerations or rashes noted. Impression: Epigastric abdominal pain suspect GERD with history of AVM Anemia of chronic disease with iron deficiency Chronic alcoholic liver cirrhosis with CT scan showing splenomegaly and moderate ascites Alcohol abuse Elevated ammonia level related to liver cirrhosis, asymptomatic Plan: Epigastric abdominal pain suspect GERD with history of AVM: Patient will be admitted for further evaluation. Overall stable. No mention of melena or hematemesis noted. Will obtain MRCP. Case discussed with GI. GI perform EGD in the past. Patient with history of GERD and AVM. Patient was to follow-up last year but did not. We will provide clear liquid diet. Will transfuse to units of blood. If stable consider discharge tomorrow with outpatient EGD to be done by GI. Will monitor hemoglobin. Will reassess tomorrow. Anemia of chronic disease with iron deficiency: Patient has been transfused in the past. We will transfuse 2 units. Maintain hemoglobin above 7.5. Patient will require iron at discharge. Chronic alcoholic liver cirrhosis with CT scan showing splenomegaly and moderate ascites: Patient with alcohol cirrhosis. Overall stable. Alcohol cessation addressed in detail. Patient understands this in detail. Patient will need close follow-up with GI to further address. Alcohol abuse: Alcohol cessation addressed in detail. Patient understands the importance of this. Elevated ammonia level related to liver cirrhosis, asymptomatic: We will provide lactulose to maintain 2-3 movements per day. Recheck ammonia level. Code Status: Full Code DVT prophylaxis: SCD Advanced Care Planning-30 minutes: Home at discharge Discharge Plan: Home Plan to discharge in: 24 Hours - Advance Directives Does patient have a Living Will: No Does patient have a Durable POA for Healthcare: No - Code Status/Comfort Care Code Status Assessed: Yes (Full code) Time Spent Managing Pts Care (In Minutes): 55
[2021-06-23] MEDS ORDERED: THIAMINE 200 MG/2 ML INJ ONE (11:53)
[2021-06-23] MEDS ORDERED: VITAMIN K (ADULT) 10 MG/ML ONE (11:54)
[2021-06-23] MEDS ORDERED: CEFTRIAXONE 1000 MG/VIAL ONE (11:54)
[2021-06-23] MEDS ORDERED: NA CHLORIDE 0.9% 250 ML ONE ×3 (11:54→17:16)
[2021-06-23] MEDS ORDERED: LACTULOSE 20 GM/30 ML UCUP ONE (11:54)
[2021-06-23] MEDS ORDERED: METOPROLOL TAR 50 MG TAB ONE (13:42)
--- NOTE | 2021-06-23 18:30 | CON ---
Date of Consultation: 06/23/2021 Reason For Consultation: Questionable ventricular tachycardia on quality assurance monitor chassis. History Of Present Illness: A 46-year-old male with history of acid reflux, iron deficiency anemia, alcoholic drinks about 6 beers at least a day for a long time, presented to the hospital with fatigue , extended abdomen and abdominal discomfort. He was placed on quality assurance monitor chassis and while he was com ing back from the restroom, there was an abnormality on the telemetry concerning for ventricular tach ycardia. The patient had no symptoms of dizziness with syncope and no chest pain. No cardiac histor y whatsoever. Past Medical History: As outlined above in the HPI. Medications: Refer reconciliation sheet for detailed list. Allergies: NO KNOWN DRUG ALLERGIES. Family History: No premature coronary artery disease or cancer. Social History: Patient is a drinker, heavy on daily basis. Does not smoke or use any drugs. Review of Systems: All systems reviewed and they were negative except as mentioned in the HPI. Physical Examination: Vital Signs: Reviewed. Head and Neck: Pupils are equal and reactive to light. Intact eye movements. Mild JVD elevation. No cervical lymphadenopathy. Neck: Supple. Thyroid is not enlarged. Lungs: Clear to auscultation bilaterally. No rhonchi, rales, or crackles. No accessory muscle use. Heart: Regular rate and rhythm. No extra sounds. Abdomen: Distended. No rigidity or rebound. He has ascites. Extremities: No clubbing, cyanosis. Skin: No rash was noted. Neurologic: Alert, awake, oriented x3. No acute focal deficits appreciated. Investigations: Labs were reviewed. His potassium is 3.6, magnesium is 3. Troponin is 0. NT-proBN P is 27. Assessment And Recommendation: Abnormal tracing, on telemetry. I reviewed the strip and it is an ar tifact. There was no ventricular tachycardia. Likely this artifact is related to the time while he was coming into the bed and no further cardiac workup is warranted at this point from that regard. H owever, he does have ascites and some edema. An echocardiogram would be recommended, but again this rhythm strip that was recorded was not ventricular tachycardia episode it was an artifact. Thank you for the consult. /MODL Voice ID: [id number] Report ID: [id number]
[2021-06-23] MEDS ORDERED: ACETAMINOPHEN 500 MG TAB PO PRN (22:15)
[2021-06-23] MEDS ORDERED: ONDANSETRON 4 MG/2 ML VIAL IV PRN (22:15)
[2021-06-23] MEDS ORDERED: NA CHLORIDE 0.9% 1,000 ML IV SCH (22:15)
[2021-06-23] MEDS ORDERED: LACTULOSE 20 GM/30 ML UCUP PO SCH (22:15)
[2021-06-23] MEDS ORDERED: SODIUM CHLORIDE 0.9% 10ML INJ IV PRN (22:15)
[2021-06-23] MEDS ORDERED: FUROSEMIDE 20 MG/ 2ML VIAL IV ONE (22:18)
[2021-06-23 22:37] VITALS: BMI 32.5
[2021-06-23] MEDS: PANTOPRAZOLE 40 MG INJ IVP SCH (22:48)
[2021-06-23] MEDS ORDERED: MORPHINE 2 MG/ML SYR IV PRN (23:04)
[2021-06-24 05:44] LABS: Absolute Lymphocytes (CBC) 1.5 K/uL (0.7-4.9); Hematocrit 25.1 % (39.6-49.0); Lymphocytes % 20.5 % (15.3-44.8); MPV 8.5 fL (7.6-11.3); RBC Red Blood Cell Count 3.78 M/uL (4.33-5.43)
--- NOTE | 2021-06-24 05:50 | P.DS ---
Admission Date: 06/23/21 Discharge Date: 06/24/21 Primary Care Provider: Dr. Kerr; GI-Dr. Hardwick Disposition: ROUTINE DISCHARGE Discharge Condition: GOOD Reason for Admission: epigastric pain Consultations: Cardiology-Dr. Willis GI-Dr. Hardwick Procedures: COVID: Negative CT scan abdomen: COMPARISON: <Comparisons> TECHNIQUE: CT of the abdomen and pelvis was performed. All CT scans are performed using dose optimization technique as appropriate and may include automated exposure control or mA/KV adjustment according to patient size. FINDINGS: Lower chest: No acute abnormality. Liver: Cirrhotic liver morphology. Hepatic steatosis is present. No arterially enhancing lesions are identified. Numerous small hypoattenuating lesions are seen. Biliary: No biliary ductal dilatation. Stomach: No significant focal abnormality. Duodenum: No significant focal abnormality. Pancreas: No significant abnormality. Spleen: Splenomegaly. Adrenal: No suspicious lesions. Kidney/ureter: No hydronephrosis. No renal calculi. Retroperitoneum: No retroperitoneal adenopathy. Vascular: No aneurysm. Atherosclerosis. Bowel: No significant focal abnormality. Peritoneum: Moderate ascites. Small fat containing inguinal hernias. Bladder: Grossly unremarkable. Reproductive: No adnexal masses. Bones: No acute fracture. IMPRESSION: Cirrhotic liver morphology with evidence of portal hypertension including splenomegaly and moderate ascites. No arterially enhancing lesions are present to suspect hepatocellular carcinoma. The patient will require surveillance imaging, however. No acute findings otherwise. Abdominal ultrasound: COMPARISON: CT-STONE PROTOCOL dated 02/08/2008 FINDINGS: Cirrhotic liver morphology. The gallbladder wall is thickened measuring 8 millimeters. No stones are identified. The common bile duct is mildly dilated at 6 millimeters. No stones are seen. Moderate ascites is present. IMPRESSION: Cirrhotic liver morphology with ascites. Gallbladder wall thickening is probably related to underlying liver disease. No stones identified. Mild extrahepatic biliary ductal dilatation is present. MRCP could better evaluate the duct if there is concern for choledocholithiasis. CXR: COMPARISON: Chest Single View dated 08/24/2020; CHEST PA AND LAT 2 VIEW dated 06/16/2012; Abdomen Pelvis W Contrast dated 06/23/2021 FINDINGS: Lines: None. Lungs: No evidence of edema or pneumonia. Pleural: No significant pleural effusions or pneumothorax. Cardiac: The heart size is within normal limits. Bones: No acute fractures. IMPRESSION: No acute cardiopulmonary disease. EGD: Findings: Esophagus: Grade 1 varices were found in the distal esophagus, howev er, these were pretty clean and there was no stigmata of recent bleeding or risk of any eminent bleed. Stomach: Immediately below the GE junction in the cardia, there were multiple AVMs seen that had stigmata of bleeding. These were ablated with APC. In the antrum of the stomach, there was severe gastric antral vascular ectasias. Quite a bit of time was spent with the APC for ablation, however, significant portion still remains. In the duodenal bulb, several large polyps were seen. These have been previously biopsied by Dr. Vasquez. The second portion of the duodenum appeared normal. Complications: None. Tolerance To Anesthesia: Excellent. Postoperative Diagnoses: Grade 1 esophageal varices which are not the source of bleeding, cardia angiodysplasias as well as severe gastric antral vascular ectasias that is the likely cause of the patient's anemia, duodenal polyps, portal hypertensive gastropathy. Medical Problem List: Epigastric abdominal pain with history of AVM complicated with acute anemia with history of chronic anemia/iron deficiency status post EGD with findings of grade 1 esophageal varices, cardia angiodysplasias as well as severe gastric antral vascular ectasia, duodenal polyp and portal hypertensive gastropathy Chronic alcoholic liver cirrhosis with CT scan showing splenomegaly and moderate ascites Alcohol abuse Elevated ammonia level related to liver cirrhosis, asymptomatic Brief History of Present Illness: 46-year-old male with history of GERD, AVM, iron deficiency anemia. Patient reported epigastric pain that started about 1 week ago. He has been having some complaints of fatigue. Patient denies any melena, hematic emesis. Patient has been transfused in the past for blood. Patient had a colonoscopy and EGD last year with GI. He was found to have GERD with AVM. He was post to follow-up. He has not followed up since that time. Patient also drinks a sixpack daily. In the ER patient was evaluated. Hemoglobin 6.5. White count 8.0. Sodium 138, potassium 3.6. BUN of 7, GFR greater than 90. Glucose 101. Total bilirubin 1.4, AST 53, ALT 29, ammonia level 60. Lipase unremarkable. CT scan revealed cirrhotic liver with splenomegaly and ascites. Portal hypertension noted. Patient doing well at this time. Patient admitted for transfusion. Hospital Course: Patient presented with epigastric abdominal pain. Patient with history of AVM in the past with prior EGD. Patient noted with acute anemia with history of chronic anemia and iron deficiency as well. Patient was admitted for treatment. Patient received 3 units of blood. Case discussed in detail with GI. GI recommended EGD to further evaluate. EGD performed. EGD showed grade 1 esophageal varices, cardia angiodysplasia as well as severe gastric antral vascular ectasia, duodenal polyp and portal hypertensive gastropathy. Patient did well post EGD. Patient tolerating diet. Repeat hemoglobin improved. At discharge patient will continue with Protonix 40 mg 1 pill once daily. Recommend follow-up with GI in 1 to 2 weeks to follow-up to his hospitalization. At discharge patient will continue with iron supplementation twice daily. Recommend to recheck labCBC in 1 to 2 weeks to monitor his progress. If patient remains anemic in the future his PCP can arrange for outpatient transfusion. Recommend follow-up with hepatology to further address his condition. This can be done with the help of GI. Recommend follow-up with PCP to follow-up this hospitalization. Patient found to have CT evidence of liver cirrhosis, splenomegaly and moderate ascites. EGD shows grade 1 esophageal varices, cardia angiodysplasia, severe gastric antral vascular ectasia, and portal hypertensive gastropathy. As recommended above alcohol cessation was addressed in detail. Patient plans to quit. Patient will need close follow-up with hepatology to further address his condition. This can be done with the help of GI. Patient had elevated ammonia level. This was likely related to his liver cirrhosis. Patient asymptomatic. Recommend to maintain 2-3 by movements per day. Patient may require lactulose in the future. No need for medication at this time. Patient was seen and evaluated by cardiology for suspected abnormal arrhythmia. EKG reviewed by cardiology. This was artifact. No abnormal arrhythmia noted. Vital Signs/Physical Exam: Temp Pulse Resp BP Pulse Ox 98.7 F 70 17 125/70 99 06/24/21 04:00 06/24/21 04:00 06/24/21 04:00 06/24/21 04:00 06/24/21 04:00 General: Alert, In no apparent distress, Oriented x3, Cooperative HEENT: Atraumatic Neck: Supple Respiratory: Clear to auscultation bilaterally, Normal air movement Cardiovascular: Normal pulses, Regular rate/rhythm Gastrointestinal: Normal bowel sounds, No tenderness, No masses, No rebound, No guarding Musculoskeletal: No erythema, No tenderness, No warmth Integumentary: No tenderness/swelling, No erythema, No warmth, No cyanosis Neurological: Normal speech, Normal strength at 5/5 x4 extr, Normal tone, Normal affect Laboratory Data at Discharge: WBC 8.00 K/uL (4.3-10.9) 06/23/21 09:00 Hgb 7.9 g/dL (13.6-17.9) L 06/23/21 22:36 Hct 28.0 % (39.6-49.0) L D 06/23/21 22:36 Plt Count 212 K/uL (152-406) 06/23/21 09:00 PT 17.5 SECONDS (9.5-12.5) H 06/23/21 09:00 INR 1.52 06/23/21 09:00 Sodium 138 mmol/L (136-145) 06/23/21 09:00 Potassium 3.6 mmol/L (3.5-5.1) 06/23/21 09:00 BUN 7 mg/dL (7-18) 06/23/21 09:00 Creatinine 0.69 mg/dL (0.55-1.3) 06/23/21 09:00 Glucose 101 mg/dL (74-106) 06/23/21 09:00 Magnesium 3.0 mg/dL (1.8-2.4) H D 06/23/21 09:00 Total Bilirubin 1.4 mg/dL (0.2-1.0) H 06/23/21 09:00 AST 53 U/L (15-37) H 06/23/21 09:00 ALT 29 U/L (12-78) 06/23/21 09:00 Alkaline Phosphatase 134 U/L (45-117) H 06/23/21 09:00 Lipase 95 U/L (73-393) 06/23/21 09:00 Home Medications: Ascorbic Acid [Vitamin C*] 500 mg PO BID #60 tablet 03/11/21 Ferrous Sulfate [Iron] 325 mg PO BID #60 tablet 06/24/21 Pantoprazole [Protonix Tab*] 40 mg PO BEDTIME #30 tab 06/24/21 New Medications: Ferrous Sulfate [Iron] 325 mg PO BID #60 tablet Pantoprazole [Protonix Tab*] 40 mg PO BEDTIME #30 tab Physician Discharge Instructions: Patient presented with epigastric abdominal pain. Patient with history of AVM in the past with prior EGD. Patient noted with acute anemia with history of chronic anemia and iron deficiency as well. Patient was admitted for treatment. Patient received 3 units of blood. Case discussed in detail with GI. GI recommended EGD to further evaluate. EGD performed. EGD showed grade 1 esophageal varices, cardia angiodysplasia as well as severe gastric antral vascular ectasia, duodenal polyp and portal hypertensive gastropathy. Patient did well post EGD. Patient tolerating diet. Repeat hemoglobin improved. At discharge patient will continue with Protonix 40 mg 1 pill once daily. Recommend follow-up with GI in 1 to 2 weeks to follow-up to his hospitalization. At discharge patient will continue with iron supplementation twice daily. Recommend to recheck labCBC in 1 to 2 weeks to monitor his progress. If patient remains anemic in the future his PCP can arrange for outpatient transfusion. Recommend follow-up with hepatology to further address his condition. This can be done with the help of GI. Recommend follow-up with PCP to follow-up this hospitalization. Patient found to have CT evidence of liver cirrhosis, splenomegaly and moderate ascites. EGD shows grade 1 esophageal varices, cardia angiodysplasia, severe gastric antral vascular ectasia, and portal hypertensive gastropathy. As r ecommended above alcohol cessation was addressed in detail. Patient plans to quit. Patient will need close follow-up with hepatology to further address his condition. This can be done with the help of GI. Patient had elevated ammonia level. This was likely related to his liver cirrhosis. Patient asymptomatic. Recommend to maintain 2-3 by movements per day. Patient may require lactulose in the future. No need for medication at this time. Patient was seen and evaluated by cardiology for suspected abnormal arrhythmia. EKG reviewed by cardiology. This was artifact. No abnormal arrhythmia noted. Diet: AHA Activity: Ad beverley Followup: NONE,NONE [Primary Care Provider] - Time spent managing pt's care (in minutes): 55
[2021-06-24 06:10] LABS: ALT/SGPT 23 U/L (12-78); AST/SGOT 37 U/L (15-37); Albumin 1.9 g/dL (3.4-5.0); Alkaline Phosphatase 110 U/L (45-117); BUN Blood Urea Nitrogen 7 mg/dL (7-18); Bicarbonate 24 mmol/L (21-32); Bilirubin Total 2.1 mg/dL (0.2-1.0); Glucose Level 88 mg/dL (74-106); Magnesium 2.2 mg/dL (1.8-2.4); Potassium 3.5 mmol/L (3.5-5.1); Protein, Total 5.7 g/dL (6.4-8.2); Sodium Level 140 mmol/L (136-145)
[2021-06-24 06:57] LABS: White Blood Cell Scan OK (OK)
[2021-06-24 06:58] LABS: Anisocytosis 2+; Blood Morphology Comment NOTED (NOT SEEN); Platelet Estimate ADEQ
[2021-06-24 06:59] LABS: Hypochromasia 2+
[2021-06-24] MEDS ORDERED: Ringers Lactate 1,000 ML IV ONE (07:53)
--- NOTE | 2021-06-24 08:47 | P.PN ---
Subjective Date of Service: 06/24/21 Primary Care Provider: Dr. Kerr; GI-Dr. Hardwick Chief Complaint: epigastric pain Subjective: Improving, Doing well Physical Examination - Vital Signs Temperature: 98.7 F Blood Pressure: 125/70 Pulse: 70 Respirations: 17 Pulse Ox (%): 99 - Studies Laboratory Data (last 24 hrs) 06/23/21 09:00: PT 17.5 H, INR 1.52 06/23/21 09:00: WBC 8.00, Hgb 6.5 L*, Hct 23.6 L, Plt Count 212 06/23/21 09:00: Sodium 138, Potassium 3.6, BUN 7, Creatinine 0.69, Glucose 101, Magnesium 3.0 H D, Total Bilirubin 1.4 H, AST 53 H, ALT 29, Alkaline Phosphatase 134 H, Lipase 95 Assessment & Plan Discharge Plan: Home Plan to discharge in: 24 Hours Physician Review Additional Text: COVID: Negative CT scan abdomen: COMPARISON: <Comparisons> TECHNIQUE: CT of the abdomen and pelvis was performed. All CT scans are performed using dose optimization technique as appropriate and may include automated exposure control or mA/KV adjustment according to patient size. FINDINGS: Lower chest: No acute abnormality. Liver: Cirrhotic liver morphology. Hepatic steatosis is present. No arterially enhancing lesions are identified. Numerous small hypoattenuating lesions are seen. Biliary: No biliary ductal dilatation. Stomach: No significant focal abnormality. Duodenum: No significant focal abnormality. Pancreas: No significant abnormality. Spleen: Splenomegaly. Adrenal: No suspicious lesions. Kidney/ureter: No hydronephrosis. No renal calculi. Retroperitoneum: No retroperitoneal adenopathy. Vascular: No aneurysm. Atherosclerosis. Bowel: No significant focal abnormality. Peritoneum: Moderate ascites. Small fat containing inguinal hernias. Bladder: Grossly unremarkable. Reproductive: No adnexal masses. Bones: No acute fracture. IMPRESSION: Cirrhotic liver morphology with evidence of portal hypertension including splenomegaly and moderate ascites. No arterially enhancing lesions are present to suspect hepatocellular carcinoma. The patient will require surveillance imaging, however. No acute findings otherwise. Abdominal ultrasound: COMPARISON: CT-STONE PROTOCOL dated 02/08/2008 FINDINGS: Cirrhotic liver morphology. The gallbladder wall is thickened measuring 8 millimeters. No stones are identified. The common bile duct is mildly dilated at 6 millimeters. No stones are seen. Moderate ascites is present. IMPRESSION: Cirrhotic liver morphology with ascites. Gallbladder wall thickening is probably related to underlying liver disease. No stones identified. Mild extrahepatic biliary ductal dilatation is present. MRCP could better evaluate the duct if there is concern for choledocholithiasis. CXR: COMPARISON: Chest Single View dated 08/24/2020; CHEST PA AND LAT 2 VIEW dated 06/16/2012; Abdomen Pelvis W Contrast dated 06/23/2021 FINDINGS: Lines: None. Lungs: No evidence of edema or pneumonia. Pleural: No significant pleural effusions or pneumothorax. Cardiac: The heart size is within normal limits. Bones: No acute fractures. IMPRESSION: No acute cardiopulmonary disease. Physical Exam: GENERAL: The patient is a well-developed, well-nourished, in no apparent distress. Alert and oriented x3. VITAL SIGNS: Reviewed HEENT: Neck supple LUNGS: Clear to auscultation. No crackles or wheezes are heard. HEART: Regular rate and rhythm, no appreciable gallops, rubs, murmurs or extra heart sounds ABDOMEN: Further abdominal pain noted. EXTREMITIES: Without any cyanosis, clubbing, rash, lesions or peripheral edema. NEUROLOGIC: The patient is oriented to person, place and time. Strength and sensation are grossly intact. Face is symmetric. SKIN: Normal color, turgor and temperature. No ulcerations or rashes noted. Impression: Epigastric abdominal pain suspect GERD with history of AVM Acute anemia of chronic disease with iron deficiency Chronic alcoholic liver cirrhosis with CT scan showing splenomegaly and moderate ascites Alcohol abuse Elevated ammonia level related to liver cirrhosis, asymptomatic Plan: Epigastric abdominal pain suspect GERD with history of AVM: Patient doing well. No melena or hematemesis noted. Patient received 2 units of blood. Hemoglobin 7.2 from 7.9. Will transfuse 1 more unit of blood. Case discussed with GI. GI plans for EGD today to further evaluate. Await findings. We will keep the patient n.p.o. Possible discharge later today if EGD unremarkable. Acute anemia of chronic disease with iron deficiency: Patient has been transfused 2 units. Hemoglobin 7.2 from 7.9 after 2 units of blood. We will transfuse 1 more unit. Patient to have EGD today. Patient with history of AVM. Await findings from EGD. Case discussed in detail with GI. Chronic alcoholic liver cirrhosis with CT scan showing splenomegaly and moderate ascites: Patient with alcohol cirrhosis. This was discussed in detail with patient. Overall stable. Alcohol cessation addressed in detail. Patient understands that he will need to quit alcohol. Patient will need close follow- up with GI as an outpatient to further address as an outpatient. Alcohol abuse: Alcohol cessation addressed in detail. Patient understands the importance of this. Elevated ammonia level related to liver cirrhosis, asymptomatic: Patient having better bowel movements. Will discontinue lactulose for now. Code Status: Full Code DVT prophylaxis: SCD Advanced Care Planning-30 minutes: Home at discharge Time Spent Managing Pts Care (In Minutes): 55
[2021-06-24] MEDS ORDERED: LIDOCAINE 1% MPF 5 ML VIAL ONE (08:52)
[2021-06-24] MEDS ORDERED: propofoL 200 MG/20 ML VIAL IV ONE (08:52)
[2021-06-24] MEDS ORDERED: FOLIC ACID 1 MG in NA CHLORIDE 0.9% 50 ML IV SCH (09:00)
[2021-06-24] MEDS ORDERED: THIAMINE 200 MG/2 ML INJ IVP SCH (09:00)
[2021-06-24] MEDS ORDERED: FOLIC ACID 5 MG/ML VIAL IVP SCH (09:00)
[2021-06-24] MEDS: PANTOPRAZOLE 40 MG INJ IVP SCH (10:55)
--- NOTE | 2021-06-24 11:06 | OP ---
Surgeon: Hardik Hardwick MD Procedure To Be Performed: Esophagogastroduodenoscopy. Performing Physician: Hardik Hardwick MD. Indication For Procedure: Anemia, history of chronic GI blood loss secondary to AVMs. Plan For Anesthesia: Monitored anesthesia care. Complexity: High. Technique: After obtaining informed consent from the patient explaining risks and complications whic h include but are not limited to bleeding, infection, perforation, anesthesia complication, the patie nt was placed in the left lateral position and sedation was given. From then on, the scope was advan olinda to the mouth and carefully guided up till the second portion of the duodenum. After the completi on of examination, scope and equipment were withdrawn and procedure terminated in a safe manner. Findings: Esophagus: Grade 1 varices were found in the distal esophagus, however, these were pretty clean and there was no stigmata of recent bleeding or risk of any eminent bleed. Stomach: Immediately below the GE junction in the cardia, there were multiple AVMs seen that had stig vasques of bleeding. These were ablated with APC. In the antrum of the stomach, there was severe gastr ic antral vascular ectasias. Quite a bit of time was spent with the APC for ablation, however, signif icant portion still remains. In the duodenal bulb, several large polyps were seen. These have been previously biopsied by Dr. Wang. The second portion of the duodenum appeared normal. Complications: None. Tolerance To Anesthesia: Excellent. Postoperative Diagnoses: Grade 1 esophageal varices which are not the source of bleeding, cardia ang iodysplasias as well as severe gastric antral vascular ectasias that is the likely cause of the patie nt's anemia, duodenal polyps, portal hypertensive gastropathy. Plan: Continue current management. Start on diet, oral PPI. The patient will need to have a detail ed evaluation [facility], as his portal hypertension appears to be quite significant. He ca n follow up with us in the clinic as well. There is no fix for his anemia at our expertise level kishor t is why he will need to be managed at a tertiary care center. US/MODL Voice ID: [id number] Report ID: [id number]
[2021-06-24] MEDS ORDERED: NA CHLORIDE 0.9% 250 ML ONE (12:02)
[2021-06-24 13:21] VITALS: BP 138/81; TEMP 97.9
[2021-06-24 15:30] LABS: Absolute Lymphocytes (CBC) 1.3 K/uL (0.7-4.9); Hematocrit 28.8 % (39.6-49.0); Lymphocytes % 17.8 % (15.3-44.8); MPV 8.5 fL (7.6-11.3); RBC Red Blood Cell Count 4.24 M/uL (4.33-5.43)
[2021-06-24 16:10] VITALS: O2SAT 95
[2021-06-24 16:52] LABS: Anisocytosis 3+; Blood Morphology Comment NOTED (NOT SEEN); Hypochromasia 2+; Platelet Estimate ADEQ; White Blood Cell Scan OK (OK)
--- NOTE | 2021-06-25 07:30 | EKG ---
Test Date: 2021-06-23 Test Time: 09:44:37 Food Service Agent: SCARLETT MEASUREMENT RESULTS: Intervals: Rate: 86 TN: 158 QRSD: 92 QT: 396 QTc: 473 [place]: P: 44 TN: 158 QRS: 11 T: 26 INTERPRETIVE STATEMENTS: Normal sinus rhythm Low voltage QRS Borderline ECG Compared to ECG 03/10/2021 11:28:01 Low QRS voltage now present Myocardial infarct finding no longer present Electronically Signed On 06-25-21 07:26:33 FOOD ORDER EXPEDITER by Rojelio Ralph
== END 2021-06-24 16:34 | disposition home or self-care (01) ==
LOC: ER 07:14 → ERHOLD 11:25 → 2ND 22:04
PROVIDERS: ADMIT Family Medicine; ATTEND Family Medicine
PROC: 0D568ZZ Destruction of Stomach, Via Natural or Artificial Opening Endoscopic (ICD-10-PCS; principal; 2021-06-23)
DX: D64.9 Anemia, unspecified (principal); K76.6 Portal hypertension; K31.89 Other diseases of stomach and duodenum; I85.10 Secondary esophageal varices without bleeding; K70.31 Alcoholic cirrhosis of liver with ascites; K31.819 Angiodysplasia of stomach and duodenum without bleeding; Q27.33 Arteriovenous malformation of digestive system vessel; K31.7 Polyp of stomach and duodenum; R16.1 Splenomegaly, not elsewhere classified; F10.10 Alcohol abuse, uncomplicated; Z71.41 Alcohol abuse counseling and surveillance of alcoholic; F17.210 Nicotine dependence, cigarettes, uncomplicated; Z20.822 Contact with and (suspected) exposure to COVID-19; Z80.3 Family history of malignant neoplasm of breast
CPT/HCPCS: 36430; 93005; 87040 ×2; 85025 ×3; 80048; 36415; 82140; 86900; 83735 ×2; 86850; 87205; 85610; 86901; 80076; 83605; 84443; 85018; 85014; 84484; 84439; 83690; 80053; 84145; 83880; 74177; 71045; 76705; 43270; U0003; Q9967; J2704; J1940; J3411 ×2; J3430; C9113 ×3; J2270; P9016 ×3; J7120; J7050 ×5; J7030 ×2; J2405; 96365; 96366; 96368; 96372; 96375; 99285; G0378

== ENCOUNTER 2021-07-06 10:18 | Emergency (ER) | payer OTHER ==
[2021-07-06 11:30] LABS: Absolute Lymphocytes (CBC) 0.8 K/uL (0.7-4.9); Hematocrit 25.6 % (39.6-49.0); Lymphocytes % 10.5 % (15.3-44.8); RBC Red Blood Cell Count 3.51 M/uL (4.33-5.43)
[2021-07-06 11:34] LABS: Protime INR 1.76
[2021-07-06 11:47] LABS: ALT/SGPT 26 U/L (12-78); AST/SGOT 63 U/L (15-37); Alkaline Phosphatase 111 U/L (45-117); BUN Blood Urea Nitrogen 8 mg/dL (7-18); Bicarbonate 25 mmol/L (21-32); Bilirubin Total 1.9 mg/dL (0.2-1.0); Glucose Level 94 mg/dL (74-106); NT PRO-BNP 36 pg/mL (<125); Potassium 3.9 mmol/L (3.5-5.1); Protein, Total 6.3 g/dL (6.4-8.2); Sodium Level 135 mmol/L (136-145)
[2021-07-06] MEDS ORDERED: CEFTRIAXONE 1000 MG/VIAL ONE (11:51)
[2021-07-06] MEDS ORDERED: ONDANSETRON 4 MG/2 ML VIAL ONE (11:51)
[2021-07-06] MEDS ORDERED: NA CHLORIDE 0.9% 100 ML ONE (11:51)
[2021-07-06] MEDS ORDERED: NA CHLORIDE 0.9% 1,000 ML ONE (11:51)
[2021-07-06] MEDS ORDERED: MORPHINE 2 MG/ML SYR ONE ×2 (11:51→14:03)
--- NOTE | 2021-07-06 12:00 | RAD REPORT ---
EXAM DESCRIPTION: RAD - Chest Single View - 07/06/2021 11:45 am CLINICAL HISTORY: PAIN COMPARISON: Portable 06/23/2021 TECHNIQUE: AP portable chest image was obtained 07/06/2021 11:45 am . FINDINGS: Lung volumes are very low accentuating lung markings. No dense mass or consolidation. Stra nding in each lung base is more likely to be atelectasis than infiltrate. Significant failure or volu me overload are not suspected. Heart and vasculature are normal. No measurable pleural effusion and no pneumothorax. No acute bony abnormality seen. No acute aortic findings suspected. IMPRESSION: Limited portable study showing bilateral lung base stranding favored to be atelectasis r ather than infiltrate.
[2021-07-06 12:05] LABS: Anisocytosis 2+; Blood Morphology Comment NOTED (NOT SEEN); Hypochromasia 1+; Platelet Estimate ADEQ; White Blood Cell Scan OK (OK)
[2021-07-06 12:06] LABS: Ovalocytes 1+; Teardrop Cell 1+
--- NOTE | 2021-07-06 12:32 | RAD REPORT ---
EXAM DESCRIPTION: CT - Abdomen Pelvis W Contrast - 07/06/2021 12:23 pm CLINICAL HISTORY: ABDOMINAL DISTENTION, bloating and nausea, patient hospitalized 2 weeks earlier fo r similar symptoms with no measurable improvement during that time COMPARISON: Abdomen Pelvis W Contrast dated 06/23/2021 TECHNIQUE: Biphasic, helical CT imaging of the abdomen and pelvis was performed following 100 ml non -ionic IV contrast. No oral contrast was administered. All CT scans are performed using dose optimization technique as appropriate and may include automated exposure control or mA/KV adjustment according to patient size. FINDINGS: No suspicious findings in the lung bases. Liver shows a nodular capsule contour with prominent left lobe and caudate lobe. No focal lesion of t he liver identified. No portal vein thrombus. Splenomegaly to 15 cm craniocaudal dimension noted. No focal splenic finding. No pancreatic or peripancreatic acute process. Gallbladder and biliary tree ar e also without suspicious finding. Symmetric renal function is seen with no hydronephrosis or suspicious renal mass. No pyelonephritis o r acute parenchymal process. No bladder abnormalities. No adrenal abnormalities. No gastric dilatation or gastric wall thickening evident. Alex of the stomach are difficult to asses s due to decompressed state. No duodenum abnormality seen. Patient has several distended but nondilat ed small bowel loops. Pattern is nonspecific but could indicate ileus or enteritis. Pattern is slight ly more prominent than prior imaging. No acute colon process. The appendix is unremarkable. The previ ously detailed ascites is similar or fractionally increased over prior imaging. No free air or pneum atosis present. No mass or bulky lymphadenopathy. A small amount of subcutaneous fluid retention is present new from prior imaging. Bilateral fat filled inguinal hernias are present. No suspicious bony findings. IMPRESSION: No bowel obstruction, free air or surgically emergent finding identifiable. Moderate ascites is similar to fractionally increased from the June 23 study. A few prominent small bowel loops are present without obstruction. Findings may reflect a mild ileus or enteritis. Cirrhotic liver.
--- NOTE | 2021-07-06 12:35 | EDPHYS ---
Physician Documentation [facility] Name: Willie Hayes Jr Age: 46 yrs Sex: Male : 1975 Arrival Date: 07/06/2021 Time: 10:20 Bed 7 Private MD: ED Physician Obey Carlos HPI: 07/06 11:53 This 46 yrs old Male presents to ER via Ambulatory with complaints of vernon Abdominal Swelling. 11:53 The patient presents with abdominal pain abdominal distention in the upper abdomen, in vernon the lower abdomen. Onset: The symptoms/episode began/occurred 3 day(s) ago. The symptoms do not radiate. Associated signs and symptoms: Pertinent positives: nausea and vomiting. The symptoms are described as constant, crampy. Modifying factors: The symptoms are alleviated by nothing, the symptoms are aggravated by nothing. Severity of pain: At its worst the pain was moderate in the emergency department the pain is unchanged. The patient has experienced similar episodes in the past, several times. Historical: - Allergies: 10:36 No Known Allergies; vg1 - Home Meds: 10:36 pantoprazole Oral [Active]; vg1 - PMHx: 10:36 Anxiety; Depression; vg1 - Immunization history:: Client reports having NOT received the Covid vaccine. - Social history:: Smoking status: Patient/guardian denies using tobacco, Patient/guardian denies using alcohol. - Family history:: not pertinent. ROS: 11:53 Constitutional: Negative for fever, chills, and weight loss, ENT: Negative for injury, vernon pain, and discharge, Neck: Negative for injury, pain, and swelling, Cardiovascular: Negative for chest pain, palpitations, and edema, Respiratory: Negative for shortness of breath, cough, wheezing, and pleuritic chest pain, Back: Negative for injury and pain, MS/Extremity: Negative for injury and deformity, Skin: Negative for injury, rash, and discoloration, Neuro: Negative for headache, weakness, numbness, tingling, and seizure, Psych: Negative for depression, anxiety, suicide ideation, homicidal ideation, and hallucinations, Allergy/Immunology: Negative for hives, rash, and allergies, Endocrine: Negative for neck swelling, polydipsia, polyuria, polyphagia, and marked weight changes, Hematologic/Lymphatic: Negative for swollen nodes, abnormal bleeding, and unusual bruising. 11:53 Eyes: Positive for icterus. 11:53 Cardiovascular: Positive for palpitations. 11:53 Respiratory: Positive for cough. 11:53 Abdomen/GI: Positive for abdominal pain, abdominal cramps, abdominal distension. 11:53 Skin: Positive for jaundice, pallor. Exam: 11:53 Constitutional: This is a well developed, well nourished patient who is awake, alert, vernon and in no acute distress. Head/Face: Normocephalic, atraumatic. ENT: Nares patent. No nasal discharge, no septal abnormalities noted. Tympanic membranes are normal and external auditory canals are clear. Oropharynx with no redness, swelling, or masses, exudates, or evidence of obstruction, uvula midline. Mucous membranes moist. Neck: Trachea midline, no thyromegaly or masses palpated, and no cervical lymphadenopathy. Supple, full range of motion without nuchal rigidity, or vertebral point tenderness. No Meningismus. Chest/axilla: Normal chest wall appearance and motion. Nontender with no deformity. No lesions are appreciated. 11:53 Respiratory: Lungs have equal breath sounds bilaterally, clear to auscultation and percussion. No rales, rhonchi or wheezes noted. No increased work of breathing, no retractions or nasal flaring. Back: No spinal tenderness. No costovertebral tenderness. Full range of motion. Male : Normal genitalia with no discharge or lesions. MS/ Extremity: Pulses equal, no cyanosis. Neurovascular intact. Full, normal range of motion. Neuro: Awake and alert, GCS 15, oriented to person, place, time, and situation. Cranial nerves II-XII grossly intact. Motor strength 5/5 in all extremities. Sensory grossly intact. Cerebellar exam normal. Normal gait. Psych: Awake, alert, with orientation to person, place and time. Behavior, mood, and affect are within normal limits. 11:53 Eyes: Sclera: icterus. 11:53 Cardiovascular: Rate: tachycardic, Rhythm: regular. 11:53 Abdomen/GI: Inspection: distension, Bowel sounds: normal, Palpation: mild abdominal tenderness, in all quadrants, Liver: is firm, Hernia: not appreciated. 12:25 ECG was reviewed by the Attending Physician. [facility] 13:36 Abdomen/GI: Rectal exam: Prostate: normal, rectal tone normal, Stool: guaiac negative, vernon hemorrhoid(s), are not appreciated, mass, is not appreciated, swelling, is not appreciated, tenderness, is not appreciated, fecal impaction, is not appreciated. Vital Signs: 10:34 BP 141 / 80; Pulse 110; Resp 18; Temp 98.9(O); Pulse Ox 98% ; Weight 79.38 kg; Height 5 vg1 ft. 7 in. (170.18 cm); Pain 8/10; 13:00 BP 142 / 86; Pulse 102; Resp 18; Pulse Ox 99% on R/A; ph 14:34 BP 135 / 78; Pulse 98; Resp 18; Temp 98.6; Pulse Ox 98% on R/A; ph 10:34 Body Mass Index 27.41 (79.38 kg, 170.18 cm) vg1 MDM: 11:07 Patient medically screened. vernon 12:00 Differential diagnosis: cholecystitis, Cholelithiasis, diverticulitis, gastritis, vernon non-specific abd pain, pancreatitis, Peptic Ulcer Disease, Pyelonephritis, urinary tract infection. Data reviewed: vital signs, nurses notes, lab test result(s), EKG, radiologic studies, CT scan, plain films. Data interpreted: sock boarder: rate is 110 beats/min, rhythm is regular, Pulse oximetry: on room air is 98 %. Test interpretation: by ED physician or midlevel provider: ECG, plain radiologic studies. Counseling: I had a detailed discussion with the patient and/or guardian regarding: the historical points, exam findings, and any diagnostic results supporting the discharge/admit diagnosis, lab results, radiology results. 07/06 11:05 Order name: Basic Metabolic Panel; Complete Time: 12:14 ph 07/06 11:05 Order name: CBC with Diff; Complete Time: 12:14 ph 07/06 11:05 Order name: LFT's; Complete Time: 12:14 ph 07/06 11:05 Order name: Magnesium; Complete Time: 12:14 ph 07/06 11:05 Order name: NT PRO-BNP; Complete Time: 12:14 ph 07/06 11:05 Order name: PT-INR; Complete Time: 12:14 ph 07/06 11:05 Order name: Troponin HS; Complete Time: 12:14 ph 07/06 11:05 Order name: AMMONIA; Complete Time: 12:14 ph 07/06 11:05 Order name: Type And Screen; Complete Time: 13:02 07/06 11:30 Order name: Blood Culture Adult (2) [facility] 07/06 11:30 Order name: Lactate [facility] 07/06 11:30 Order name: Lipase [facility] 07/06 11:31 Order name: Blood Culture [facility] 07/06 11:31 Order name: Lactate; Complete Time: 12:32 [facility] 07/06 11:05 Order name: XRAY Chest (1 view); Complete Time: 12:14 07/06 11:05 Order name: EKG; Complete Time: 11:06 07/06 11:05 Order name: Cardiac monitoring; Complete Time: 11:35 07/06 11:30 Order name: CT Abd/Pelvis - IV Contrast Only; Complete Time: 13:02 [facility] 07/06 11:31 Order name: Lipase; Complete Time: 12:14 [facility] 07/06 11:37 Order name: COVID-19 SARS RT PCR (Document "Date of Onset" if Symptomatic) 07/06 11:38 Order name: SARS-COV-2 RT PCR; Complete Time: 13:02 [facility] 07/06 11:58 Order name: LAB Add On 07/06 11:59 Order name: Acetaminophen Level; Complete Time: 12:14 [facility] 07/06 12:05 Order name: CBC Smear Scan; Complete Time: 12:14 [facility] 07/06 11:05 Order name: EKG - Nurse/Tech; Complete Time: 12:09 07/06 11:05 Order name: IV Saline Lock; Complete Time: 11:35 07/06 11:05 Order name: Labs collected and sent; Complete Time: 11:35 07/06 11:05 Order name: O2 Per Protocol; Complete Time: 11:35 07/06 11:05 Order name: O2 Sat Monitoring; Complete Time: 11:35 07/06 11:27 Order name: Labs - recollect needed: recollect T\\T\\S . Gel pen used; Complete Time: 12:09 EC:25 Rate is 98 beats/min. Rhythm is regular. QRS [place] is Normal. [place] interval is normal. QRS vernon interval is normal. QT interval is normal. No Q waves. T waves are Normal. No ST changes noted. Clinical impression: Abnormal EKG without significant change and No evidence of ischemia. Interpreted by me. Reviewed by me. Administered Medications: 12:06 Drug: Zofran (Ondansetron) 4 mg Route: IVP; Site: right antecubital; ph 14:35 Follow up: Response: No adverse reaction ph 12:08 Drug: morphine 2 mg Route: IVP; Site: right antecubital; ph 12:09 Drug: NS 0.9% 1000 ml Route: IV; Rate: 75 ml/hr; Site: right antecubital; ph 14:35 Follow up: IV Status: Infusion continued upon transfer ph 12:47 Drug: Rocephin (cefTRIAXone) 1 grams Route: IV; Rate: per protocol; Site: right ph antecubital; 13:05 Follow up: Response: No adverse reaction; IV Status: Completed infusion ph 14:20 Drug: morphine 2 mg Route: IVP; Site: right antecubital; ph 14:35 Follow up: Response: No adverse reaction ph 14:20 Drug: Lasix (furosemide) 20 mg Route: IVP; Site: right antecubital; ph 14:35 Follow up: Response: No adverse reaction ph 14:20 Drug: ProTONIX (pantoprazole) 80 mg Route: IVP; Site: right antecubital; ph 14:35 Follow up: Response: No adverse reaction ph Disposition Summary: 07/06/21 12:34 Transfer Ordered Reason: Higher level of care vernon Condition: Fair vernon Problem: new vernon Symptoms: have improved vernon Transfer Location: [facility](07/06/21 13:12) vernon Accepting Physician: selene rodriguez(07/06/21 14:36) ph Diagnosis - Alcoholic cirrhosis of liver with ascites vernon - Abdominal pain, unspecified vernon - Anemia, unspecified vernon Forms: - Medication Reconciliation Form vernon - SBAR form vernon Signatures: Dispatcher [employer] Obey Reno MD MD cha Hall, Patricia RN RN ph Margi Arceo Victoria RN RN vg1 Corrections: (The following items were deleted from the chart) 13:12 12:[address] viet fox vernon vernon 13:12 12:34 [facility] vernon vernon 14:36 13:12 selene rodriguez vernon ph
--- NOTE | 2021-07-06 12:35 | ER ---
Nurse's Notes [facility] Name: Willie Hayes Jr Age: 46 yrs Sex: Male : 1975 Arrival Date: 07/06/2021 Time: 10:20 Bed 7 Private MD: Diagnosis: Alcoholic cirrhosis of liver with ascites;Abdominal pain, unspecified;Anemia, unspecified Presentation: 07/06 10:34 Chief complaint: Patient states: was d/c about two weeks ago for ABD swelling; states vg1 nothing has changed since being d/c. States 'feels bloated and nauseous.' Denies V/D. Coronavirus screen: Vaccine status: Patient reports being unvaccinated. Client denies travel out of the [place] in the last 14 days. Ebola Screen: Patient negative for fever greater than or equal to 101.5 degrees Fahrenheit, and additional compatible Ebola Virus Disease symptoms. Initial Sepsis Screen: Does the patient meet any 2 criteria? HR > 90 bpm. Does the patient have a suspected source of infection? No. Patient's initial sepsis screen is negative. Risk Assessment: Do you want to hurt yourself or someone else? Patient reports no desire to harm self or others. Onset of symptoms was June 22, 2021. 10:34 Method Of Arrival: Ambulatory vg1 10:34 Acuity: LAWR[place] 3 vg1 Triage Assessment: 10:36 General: Appears uncomfortable, Behavior is calm, cooperative. Pain: Complains of pain vg1 in right upper quadrant and left upper quadrant Pain currently is 8 out of 10 on a pain scale. GI: Abdomen is distended, Reports nausea. Historical: - Allergies: 10:36 No Known Allergies; vg1 - Home Meds: 10:36 pantoprazole Oral [Active]; vg1 - PMHx: 10:36 Anxiety; Depression; vg1 - Immunization history:: Client reports having NOT received the Covid vaccine. - Social history:: Smoking status: Patient/guardian denies using tobacco, Patient/guardian denies using alcohol. - Family history:: not pertinent. Screenin:12 Abuse screen: Denies threats or abuse. Denies injuries from another. Nutritional ph screening: No deficits noted. Tuberculosis screening: No symptoms or risk factors identified. Fall Risk None identified. Assessment: 12:10 General: Appears in no apparent distress. uncomfortable, well groomed, Behavior is ph calm, cooperative, appropriate for age, Denies fever, chills. Pain: Complains of pain in abdomen. Neuro: Level of Consciousness is awake, alert, obeys commands, Oriented to person, place, time, situation. Cardiovascular: Denies chest pain, nausea, shortness of breath, Capillary refill < 3 seconds in bilateral fingers Patient's skin is warm and dry. Edema is 1+ to left midcalf, left ankle, right midcalf and right ankle Rhythm is sinus rhythm. Respiratory: Airway is patent Respiratory effort is even, unlabored, Respiratory pattern is regular, symmetrical, Denies cough, shortness of breath. GI: Abdomen is distended, noted to have ascites, Reports lower abdominal pain, upper abdominal pain, bloating, Patient currently denies bloody stool, nausea, vomiting. : Reports decreased urination. Derm: Skin is intact, Skin is pink, warm \T\ dry. Musculoskeletal: Circulation, motion, and sensation intact. Range of motion: intact in all extremities. 13:30 Reassessment: Patient appears in no apparent distress at this time. Patient and/or ph family updated on plan of care and expected duration. Pain level reassessed. Patient is alert, oriented x 3, equal unlabored respirations, skin warm/dry/pink. 14:33 Reassessment: Patient appears in no apparent distress at this time. Patient and/or ph family updated on plan of care and expected duration. Pain level reassessed. Patient is alert, oriented x 3, equal unlabored respirations, skin warm/dry/pink. Report called to Tiara TIPTON at [facility]. Vital Signs: 10:34 BP 141 / 80; Pulse 110; Resp 18; Temp 98.9(O); Pulse Ox 98% ; Weight 79.38 kg; Height 5 vg1 ft. 7 in. (170.18 cm); Pain 8/10; 13:00 BP 142 / 86; Pulse 102; Resp 18; Pulse Ox 99% on R/A; ph 14:34 BP 135 / 78; Pulse 98; Resp 18; Temp 98.6; Pulse Ox 98% on R/A; ph 10:34 Body Mass Index 27.41 (79.38 kg, 170.18 cm) 1 ED Course: 10:20 Patient arrived in ED. ds1 10:36 Triage completed. vg1 10:36 Arm band placed on. vg1 10:41 Evelia Maciel, DANUTA is Primary Nurse. ph 11:07 Obey Carlos MD is Attending Physician. vernon 11:10 Initial lab(s) drawn, by me, sent to lab. Inserted saline lock: 20 gauge in right ph antecubital area, using aseptic technique. Blood collected. 11:45 XRAY Chest (1 view) In Process Unspecified. EDMS 12:12 Patient has correct armband on for positive identification. Placed in gown. Bed in low ph position. Call light in reach. Side rails up X2. court recording monitor on. Pulse ox on. NIBP on. Door closed. Noise minimized. Warm blanket given. 12:23 CT Abd/Pelvis - IV Contrast Only In Process Unspecified. EDMS 12:[address] Carlos with [facility].eb 12:36 per Nori they will have to decline the patient in transfer due to [facility] being at eb capacity. 12:42 Transfer initiated with JUVENTINO Austin from the [facility] Transfer [facility]. eb 13:[address] Dangelo the hospitalist computational geneticist for [facility] with Dr. Carlso for patient transfer consultation.. 13:09 administrative approval given by JUVENTINO Austin/ patient has been accepted to [facility] Rm [id number]/ Dr. Gris Dangelo has accepted the patient in transfer/ report to be called to [phone]. 14:33 No provider procedures requiring assistance completed. Patient transferred, IV remains ph in place. Administered Medications: 12:06 Drug: Zofran (Ondansetron) 4 mg Route: IVP; Site: right antecubital; ph 14:35 Follow up: Response: No adverse reaction ph 12:08 Drug: morphine 2 mg Route: IVP; Site: right antecubital; ph 12:09 Drug: NS 0.9% 1000 ml Route: IV; Rate: 75 ml/hr; Site: right antecubital; ph 14:35 Follow up: IV Status: Infusion continued upon transfer ph 12:47 Drug: Rocephin (cefTRIAXone) 1 grams Route: IV; Rate: per protocol; Site: right ph antecubital; 13:05 Follow up: Response: No adverse reaction; IV Status: Completed infusion ph 14:20 Drug: morphine 2 mg Route: IVP; Site: right antecubital; ph 14:35 Follow up: Response: No adverse reaction ph 14:20 Drug: Lasix (furosemide) 20 mg Route: IVP; Site: right antecubital; ph 14:35 Follow up: Response: No adverse reaction ph 14:20 Drug: ProTONIX (pantoprazole) 80 mg Route: IVP; Site: right antecubital; ph 14:35 Follow up: Response: No adverse reaction ph Outcome: 12:34 ER care complete, transfer ordered by MD. junior 14:33 Transferred by ground EMS [facility] to [facility], Transfer ph form completed. X-rays sent w/ patient. 14:33 Condition: stable 14:33 Instructed on the need for transfer. 14:36 Patient left the ED. ph Signatures: Dispatcher [employer] EDMS Obey Carlos MD MD cha Sanford, Demi ds1 Evelia Maciel, RN RN Margi Dunbar Victoria, RN RN vg1
[2021-07-06] MEDS ORDERED: FUROSEMIDE 20 MG/ 2ML VIAL ONE (14:04)
[2021-07-06] MEDS ORDERED: PANTOPRAZOLE 40 MG INJ ONE (14:04)
[2021-07-06 14:50] VITALS: BP 135/78; TEMP 98.6; O2SAT 98
== END 2021-07-06 14:36 | disposition short-term general hospital (02) ==
LOC: ER 10:18
DX: K70.31 Alcoholic cirrhosis of liver with ascites (principal); D64.9 Anemia, unspecified; F41.8 Other specified anxiety disorders; Z20.822 Contact with and (suspected) exposure to COVID-19
CPT/HCPCS: 93005; 87040 ×2; 85025; 80048; 36415; 82140; 86900; 83735; 86850; 87205; 80329; 85610; 86901; 80076; 83605; 84484; 83690; 83880; 74177; 71045; U0003; Q9967; J1940; C9113; J2270 ×2; J7030; J2405

== ENCOUNTER 2021-12-07 23:40 | Emergency (ER) | payer OTHER ==
[2021-12-08 00:55] LABS: Protime INR 1.74
[2021-12-08 00:56] LABS: Absolute Lymphocytes (CBC) 1.7 K/uL (0.7-4.9); Hematocrit 25.8 % (39.6-49.0); Lymphocytes % 20.9 % (15.3-44.8); MCV 79.1 fL (80-100); RBC Red Blood Cell Count 3.27 M/uL (4.33-5.43)
[2021-12-08] MEDS ORDERED: PANTOPRAZOLE 40 MG INJ ONE (01:13)
[2021-12-08 01:30] LABS: Potassium 4.1 mmol/L (3.5-5.1); Troponin High Sensitivity 4.1 pg/mL (<58.9)
--- NOTE | 2021-12-08 01:43 | EDPHYS ---
Physician Documentation [facility] Name: Willie Hayes Jr Age: 46 yrs Sex: Male : 1975 Arrival Date: 12/07/2021 Time: 23:40 Bed 13 Private MD: ED Physician Obey Carlos HPI: 12/08 00:44 This 46 yrs old Male presents to ER via Ambulatory with complaints of Chest vernon Pain, Shortness Of Breath. 00:44 This 46 yrs old Male presents to ER via Ambulatory with complaints of Chest vernon Pain, Shortness Of Breath. 00:44 The patient or guardian reports chest pain that is located primarily in the epigastric vernon area, anterior chest wall. Onset: 2 day(s) ago. The pain does not radiate. Associated signs and symptoms: The patient has no apparent associated signs or symptoms. The chest pain is described as sharp. Duration: The patient or guardian reports multiple episodes, with no pattern. Modifying factors: The symptoms are alleviated by nothing. the symptoms are aggravated by nothing. Severity of pain: At its worst the pain was moderate in the emergency department the pain is unchanged. The patient has not experienced similar symptoms in the past. Historical: - Allergies: 00:04 No Known Allergies; lp1 - Home Meds: 00:04 Omeprazole Oral [Active]; Lasix Oral [Active]; Spironolactone Oral [Active]; Lactulose lp1 Oral [Active]; Iron CR Oral [Active]; - PMHx: 00:04 Anxiety; Depression; Cirrhosis of liver; lp1 - PSHx: 00:04 None; lp1 - Immunization history:: Adult Immunizations up to date. - Social history:: Smoking status: Patient denies any tobacco usage or history of. - Family history:: not pertinent. ROS: 00:44 Constitutional: Negative for fever, chills, and weight loss, Eyes: Negative for injury, vernon pain, redness, and discharge, ENT: Negative for injury, pain, and discharge, Neck: Negative for injury, pain, and swelling, Back: Negative for injury and pain, : Negative for injury, bleeding, discharge, and swelling, MS/Extremity: Negative for injury and deformity, Skin: Negative for injury, rash, and discoloration, Neuro: Negative for headache, weakness, numbness, tingling, and seizure, Psych: Negative for depression, anxiety, suicide ideation, homicidal ideation, and hallucinations, Allergy/Immunology: Negative for hives, rash, and allergies, Endocrine: Negative for neck swelling, polydipsia, polyuria, polyphagia, and marked weight changes, Hematologic/Lymphatic: Negative for swollen nodes, abnormal bleeding, and unusual bruising. 00:44 Cardiovascular: Positive for chest pain. 00:44 Respiratory: Positive for shortness of breath, at rest. 00:44 Abdomen/GI: Positive for abdominal pain, abdominal cramps, abdominal distension, of the right upper quadrant, left upper quadrant, right lower quadrant and left lower quadrant. Exam: 00:44 Constitutional: This is a well developed, well nourished patient who is awake, alert, vernon and in no acute distress. Head/Face: Normocephalic, atraumatic. Eyes: Pupils equal round and reactive to light, extra-ocular motions intact. Lids and lashes normal. Conjunctiva and sclera are non-icteric and not injected. Cornea within normal limits. Periorbital areas with no swelling, redness, or edema. ENT: Nares patent. No nasal discharge, no septal abnormalities noted. Tympanic membranes are normal and external auditory canals are clear. Oropharynx with no redness, swelling, or masses, exudates, or evidence of obstruction, uvula midline. Mucous membranes moist. Neck: Trachea midline, no thyromegaly or masses palpated, and no cervical lymphadenopathy. Supple, full range of motion without nuchal rigidity, or vertebral point tenderness. No Meningismus. Chest/axilla: Normal chest wall appearance and motion. Nontender with no deformity. No lesions are appreciated. Back: No spinal tenderness. No costovertebral tenderness. Full range of motion. Male : Normal genitalia with no discharge or lesions. Skin: Warm, dry with normal turgor. Normal color with no rashes, no lesions, and no evidence of cellulitis. MS/ Extremity: Pulses equal, no cyanosis. Neurovascular intact. Full, normal range of motion. Neuro: Awake and alert, GCS 15, oriented to person, place, time, and situation. Cranial nerves II-XII grossly intact. Motor strength 5/5 in all extremities. Sensory grossly intact. Cerebellar exam normal. Normal gait. Psych: Awake, alert, with orientation to person, place and time. Behavior, mood, and affect are within normal limits. 00:44 Cardiovascular: Rate: tachycardic, actual rate is 107 bpm, Rhythm: regular, Pulses: Pulses are 4+ in bilateral radial, brachial, femoral, popliteal, posterior tibial and and dorsalis pedis arteries.. Heart sounds: normal, Edema: 1+ edema to level of left midcalf and right midcalf, JVD: is not appreciated. 00:44 Respiratory: the patient does not display signs of respiratory distress, Respirations: normal, no acute changes, labored breathing, is not present, Breath sounds: decreased breath sounds, that are mild, that are moderate, are heard in the right middle lobe, right lower lobe, right posterior middle lobe and right posterior lower lobe. Vital Signs: 00:02 BP 131 / 87; Pulse 107; Resp 20; Temp 98.1(O); Pulse Ox 99% on R/A; Weight 90.72 kg lp1 (R); Height 5 ft. 7 in. (170.18 cm); Pain 8/10; 01:23 BP 105 / 70; Pulse 106; Resp 14; Pulse Ox 100% on R/A; jb4 00:02 Body Mass Index 31.32 (90.72 kg, 170.18 cm) lp1 MDM: 00:03 Patient medically screened. vernon 00:47 HEART Score: History: Slightly Suspicious (0), ECG: Normal (0), Age: < or = 45 years vernon (0), Risk Factors: 1 or 2 risk factors (1), [+ Family HX] Troponin: < or = 1 x Normal Limit (0), Total Score = 1. The patient was not given aspirin in the Emergency Department. The patient's deep vein thrombosis risk score was calculated as follows: Total Score: 0. This patient was found to be at low risk for a deep vein thrombosis by using the Well's assessment criteria. The patient's pulmonary embolism risk score was calculated as follows: the patients heart rate is greater than 100 beats per minute (1.5 Pts) Total Score: 0-2 points. This patient was found to be at low risk for a pulmonary embolism by using the Well's assessment criteria. LAY Risk Score: not applicable. Data reviewed: vital signs, nurses notes, lab test result(s), CBC, electrolytes, hepatic panel, urinalysis, EKG, radiologic studies, CT scan, plain films. 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 Test interpretation: by ED physician or midlevel provider: ECG, plain radiologic studies. Counseling: I had a detailed discussion with the patient and/or guardian regarding: the historical points, exam findings, and any diagnostic results supporting the discharge/admit diagnosis, lab results, radiology results, the need to transfer to another facility, for higher level of care, [facility] does not immediately have the required specialist. 12/08 00:02 Order name: Basic Metabolic Panel; Complete Time: 01:30 [facility] 12/08 00:02 Order name: CBC with Diff; Complete Time: 02:36 [facility] 12/08 00:02 Order name: Troponin HS; Complete Time: 01:30 [facility] 12/08 00:07 Order name: AMMONIA; Complete Time: 01:30 [facility] 12/08 00:02 Order name: XRAY Chest (1 view) [facility] 12/08 00:07 Order name: PT-INR; Complete Time: 00:57 [facility] 12/08 00:07 Order name: Blood Culture Adult (2) [facility] 12/08 00:07 Order name: Lactate; Complete Time: 01:30 [facility] 12/08 00:50 Order name: NT PRO-BNP; Complete Time: 01:30 [facility] 12/08 00:50 Order name: Lipase; Complete Time: 01:30 [facility] 12/08 01:17 Order name: CBC Smear Scan; Complete Time: 02:36 [facility] 12/08 01:39 Order name: SARS-COV-2 RT PCR (Document "Date of Onset" if Symptomatic); Complete Time: [facility] 02:49 12/08 00:02 Order name: EKG; Complete Time: 00:03 [facility] 12/08 00:02 Order name: Cardiac monitoring; Complete Time: 00:43 [facility] 12/08 00:02 Order name: EKG - Nurse/Tech; Complete Time: 00:02 [facility] 12/08 00:02 Order name: IV Saline Lock; Complete Time: 00:43 [facility] 12/08 00:02 Order name: Labs collected and sent; Complete Time: 00:43 [facility] 12/08 00:02 Order name: O2 Per Protocol; Complete Time: 00:02 [facility] 07/04 00:02 Order name: O2 Sat Monitoring; Complete Time: 00:02 lp1 12/08 00:44 Order name: CT Chest Abdomen Pelvis W/O Contrast vernon Administered Medications: 01:14 Drug: ProTONIX (pantoprazole) 40 mg Route: IVP; Site: right antecubital; jb4 01:50 Drug: NS 0.9% 1000 ml Route: IV; Rate: 75 ml/hr; Site: right antecubital; ke1 03:51 Drug: Lactulose 30 grams Volume: 45 ml; Route: PO; ke1 03:51 Drug: Rocephin (cefTRIAXone) 1 grams Route: IV; Rate: per protocol; Site: right ke1 antecubital; 04:24 Drug: fentaNYL (PF) 25 mcg Route: IVP; Site: right antecubital; ke1 04:24 Drug: Zofran (Ondansetron) 4 mg Route: IVP; Site: right antecubital; ke1 04:54 Follow up: Response: Marked relief of symptoms ke1 04:53 Drug: Vitamin K1 (phytonadione) 10 mg Route: Sub-Q; Site: right upper arm; ke1 07:47 Drug: fentaNYL (PF) 25 mcg Route: IVP; Site: right antecubital; ke1 08:08 Follow up: Response: Pain is decreased ke1 Disposition Summary: 12/08/21 01:42 Transfer Ordered Transfer Location: [facility] vernon Reason: Higher level of care vernon Condition: Stable vernon Problem: new vernon Symptoms: have improved vernon Accepting Physician: TO LATTER-DAY TELE(12/08/21 09:45) iw Diagnosis - Unspecified cirrhosis of liver vernon - Chest pain on breathing vernon - Other ascites vernon - Anemia, unspecified vernon - Pleural condition, unspecified - LARGE RIGHT vernon - Other specified noninfective gastroenteritis and colitis vernon - Abnormal coagulation profile vernon Forms: - Medication Reconciliation Form vernon - SBAR form vernon Signatures: Dispatcher [employer] EDObey Gonzalez MD MD cha Williams, Irene, RN RN iw Tiara Cheng RN RN lp1 Isrrael Alejandre RN RN jb4 Sherri Collazo RN RN ke1 Corrections: (The following items were deleted from the chart) 00:50 00:08 LIPASE+C.LAB.BRZ ordered. EDMS EDMS 00:50 00:08 PROBNP+C.LAB.BRZ ordered. EDMS EDMS 03:09 01:42 TO LATTER-DAY TELE ver[place] [facility] 04:27 03:09 TO LATTER-DAY TELE [place] [facility] 09:45 04:27 TO LATTER-DAY TELE vernon iw
--- NOTE | 2021-12-08 01:43 | ER ---
Nurse's Notes [facility] Name: Willie Hayes Jr Age: 46 yrs Sex: Male : 1975 Arrival Date: 12/07/2021 Time: 23:40 Bed 13 Private MD: Diagnosis: Unspecified cirrhosis of liver;Chest pain on breathing;Other ascites;Anemia, unspecified;Pleural condition, unspecified-LARGE RIGHT;Other specified noninfective gastroenteritis and colitis;Abnormal coagulation profile Presentation: 12/08 00:02 Chief complaint: Patient states: Chest pain and shortness of breath worsening lp1 throughout the day; Hx of liver cirrhosis, reports 2L drained from abdomen about 2 days ago. Coronavirus screen: At this time, the client does not indicate any symptoms associated with coronavirus-19. Ebola Screen: No symptoms or risks identified at this time. Initial Sepsis Screen: Does the patient meet any 2 criteria? No. Patient's initial sepsis screen is negative. Does the patient have a suspected source of infection? No. Patient's initial sepsis screen is negative. Risk Assessment: Do you want to hurt yourself or someone else? Patient reports no desire to harm self or others. Onset of symptoms was December 08, 2021. 00:02 Method Of Arrival: Ambulatory lp1 00:02 Acuity: [place] 3 lp1 Historical: - Allergies: 00:04 No Known Allergies; lp1 - Home Meds: 00:04 Omeprazole Oral [Active]; Lasix Oral [Active]; Spironolactone Oral [Active]; Lactulose lp1 Oral [Active]; Iron CR Oral [Active]; - PMHx: 00:04 Anxiety; Depression; Cirrhosis of liver; lp1 - PSHx: 00:04 None; lp1 - Immunization history:: Adult Immunizations up to date. - Social history:: Smoking status: Patient denies any tobacco usage or history of. - Family history:: not pertinent. Screenin:52 Abuse screen: Denies threats or abuse. Nutritional screening: No deficits noted. ke1 Tuberculosis screening: No symptoms or risk factors identified. Fall Risk None identified. Assessment: 00:38 General: Appears in no apparent distress. comfortable, Behavior is calm, cooperative, jb4 appropriate for age. Pain: Complains of pain in chest Pain does not radiate. Pain currently is 8 out of 10 on a pain scale. Quality of pain is described as stabbing, Pain began 3pm yesterday. Neuro: Level of Consciousness is awake, alert, obeys commands, Oriented to person, place, time, situation. Cardiovascular: Patient's skin is warm and dry. Respiratory: Airway is patent Respiratory effort is even, unlabored, Respiratory pattern is regular, symmetrical. Derm: Skin is intact, Skin is pink, warm \T\ dry. Musculoskeletal: Circulation, motion, and sensation intact. Range of motion: intact in all extremities. 01:52 Pain: Complains of pain in chest Pain currently is 6 out of 10 on a pain scale. Quality ke1 of pain is described as sharp, Alleviated by repositioning. 03:52 Reassessment: No changes from previously documented assessment. ke1 04:45 Reassessment: report called to Tamiko TIPTON for [facility] in the medical center room [address]. 07:15 Reassessment: Patient is alert, oriented x 3, equal unlabored respirations, skin ke1 warm/dry/pink. Pain: Complains of pain in diaphragm Pain currently is 8 out of 10 on a pain scale. Quality of pain is described as crampy, sharp, stabbing. 08:08 Reassessment: Patient states symptoms have improved. Pain: Pain currently is 3 out of ke1 10 on a pain scale. Vital Signs: 00:02 BP 131 / 87; Pulse 107; Resp 20; Temp 98.1(O); Pulse Ox 99% on R/A; Weight 90.72 kg lp1 (R); Height 5 ft. 7 in. (170.18 cm); Pain 8/10; 01:23 BP 105 / 70; Pulse 106; Resp 14; Pulse Ox 100% on R/A; jb4 00:02 Body Mass Index 31.32 (90.72 kg, 170.18 cm) lp1 ED Course: 12/07 23:40 Patient arrived in ED. ja2 12/08 00:02 Arm band placed on. lp1 00:03 Obey Carlos MD is Attending Physician. vernon 00:04 Triage completed. lp1 00:05 Patient maintains SpO2 saturation greater than 95% on room air. lp1 00:17 Isrrael Alejandre, DANUTA is Primary Nurse. jb4 00:33 XRAY Chest (1 view) In Process Unspecified. EDMS 00:38 Initial lab(s) drawn, by me, sent to lab. Inserted saline lock: 20 gauge in right jb4 antecubital area, using aseptic technique. Blood collected. 00:43 AMMONIA Sent. jb4 00:43 PT-INR Sent. jb4 00:43 Lactate Sent. jb4 00:43 Basic Metabolic Panel Sent. jb4 00:43 CBC with Diff Sent. jb4 00:43 Troponin HS Sent. jb4 01:04 Blood Culture Adult (2) Sent. jb4 01:45 Dr. Carlos initiated transfer with Religious, spoke with Nori Aleman. 01:46 CT Chest Abdomen Pelvis W/O Contrast In Process Unspecified. EDMS 02:50 Called transfer center with results of Negative Covid. 03:50 Called transfer center for an update regarding acceptance. 03:52 Bed in low position. Call light in reach. ke1 03:52 Client placed on continuous cardiac and pulse oximetry monitoring. NIBP monitoring ke1 applied. conveyor monitor on. Pulse ox on. NIBP on. 04:20 to report done. 04:35 Pt accepted for transfer by Dr. Fermín Payan. Administered Medications: 01:14 Drug: ProTONIX (pantoprazole) 40 mg Route: IVP; Site: right antecubital; jb4 01:50 Drug: NS 0.9% 1000 ml Route: IV; Rate: 75 ml/hr; Site: right antecubital; ke1 03:51 Drug: Lactulose 30 grams Volume: 45 ml; Route: PO; ke1 03:51 Drug: Rocephin (cefTRIAXone) 1 grams Route: IV; Rate: per protocol; Site: right ke1 antecubital; 04:24 Drug: fentaNYL (PF) 25 mcg Route: IVP; Site: right antecubital; ke1 04:24 Drug: Zofran (Ondansetron) 4 mg Route: IVP; Site: right antecubital; ke1 04:54 Follow up: Response: Marked relief of symptoms ke1 04:53 Drug: Vitamin K1 (phytonadione) 10 mg Route: Sub-Q; Site: right upper arm; ke1 07:47 Drug: fentaNYL (PF) 25 mcg Route: IVP; Site: right antecubital; ke1 08:08 Follow up: Response: Pain is decreased ke1 Medication: 00:06 VIS not applicable for this client. lp1 Outcome: 01:42 ER care complete, transfer ordered by . vernon 09:45 Patient left the ED. iw Signatures: Dispatcher [employer] EDObey Gonzalez MD MD cha Ballard, Brenda, RN RN Zainab Perdue RN RN iw Tiara Cheng RN RN lp1 Isrrael Alejandre RN RN jbMonica Bentley Юлия Xavier Kouassi, RN RN ke1 Corrections: (The following items were deleted from the chart) 00:50 00:43 LIPASE+C.LAB.BRZ drawn and sent. jb4 EDMS 00:50 00:43 PROBNP+C.LAB.BRZ drawn and sent. jb4 EDMS 01:23 00:38 BP 105 / 70; Pulse 106bpm; Resp 14bpm; Pulse Ox 100% RA; jb4 jb4
[2021-12-08] MEDS ORDERED: NA CHLORIDE 0.9% 1,000 ML ONE (01:54)
[2021-12-08 01:58] LABS: Anisocytosis 1+; Blood Morphology Comment NOTED (NOT SEEN); Platelet Estimate ADEQ; White Blood Cell Scan OK (OK)
[2021-12-08 01:59] LABS: Burr Cells 2+; Polychromasia 2+
[2021-12-08] MEDS ORDERED: CEFTRIAXONE 1000 MG/VIAL ONE (03:51)
[2021-12-08] MEDS ORDERED: LACTULOSE 20 GM/30 ML UCUP ONE (03:52)
[2021-12-08] MEDS ORDERED: FENTANYL CITR 100 MCG/2 ML ONE ×2 (04:26→07:50)
[2021-12-08] MEDS ORDERED: ONDANSETRON 4 MG/2 ML VIAL ONE (04:27)
[2021-12-08] MEDS ORDERED: VITAMIN K (ADULT) 10 MG/ML ONE (04:54)
[2021-12-08 09:52] VITALS: TEMP 98.1
[2021-12-08 09:53] VITALS: BP 105/70; O2SAT 100
--- NOTE | 2021-12-08 15:31 | RAD REPORT ---
EXAM DESCRIPTION: CT - Chest Abd Pelvis Wo Con - 12/08/2021 7:22 am CLINICAL HISTORY: Cp/effusion TECHNIQUE: Axial computed tomography images of the chest, abdomen and pelvis without intravenous con trast. Sagittal and coronal reformatted images were created and reviewed. This CT exam was perfor med using one or more of the following dose reduction techniques: automated exposure control, adjus tment of the mA and/or kV according to patient size, and/or use of iterative reconstruction technique . COMPARISON: Abdomen pelvis CT dated 07/06/2021 FINDINGS: CHEST: Lungs: Moderate right lower lobe and mild right middle lobe consolidation. Pleural space: Large right pleural effusion. No pneumothorax. Heart: Coronary artery calcification. Small pericardial effusion. ABDOMEN: Liver: Diffuse surface contour nodularity of the liver. Gallbladder and bile ducts: Unremarkable. No calcified stones. No ductal dilation. Pancreas: Unremarkable. No ductal dilation. Spleen: The spleen is mildly enlarged. Adrenals: Unremarkable. No mass. Kidneys and ureters: Unremarkable. No obstructing stones. No hydronephrosis. Stomach and bowel: The proximal large bowel appears somewhat thickened. No obstruction. PELVIS: Appendix: Normal caliber appendix. No findings to suggest acute appendicitis. Bladder: Unremarkable. No stones. Reproductive: Unremarkable as visualized. CHEST, ABDOMEN and PELVIS: Intraperitoneal space: Large amount of abdominal and pelvic ascites. No free air. Bones/joints: Multilevel spondylosis. No acute fracture. No dislocation. Soft tissues: Small bilateral fat-containing inguinal hernias. Vasculature: Mild atherosclerotic disease. No aortic aneurysm. Lymph nodes: Unremarkable. No enlarged lymph nodes. IMPRESSION: 1. Large right pleural effusion. Adjacent right middle and lower lobe consolidation (a telectasis at/or infiltrate). 2. Hepatic cirrhosis. Large amount of ascites. 3. The proximal large bowel appears somewhat thickened which can be seen in the setting of underlyi ng liver disease. If clinical concern for this entity, nonspecific colitis may be considered. 4. Other findings as above. Electronically signed by: Terrence Gallagher MD 12/08/2021 2:59 AM CDT Due to temporary technical issues with the PACS/Fluency reporting system, reports are being signed by the in house radiologists without review as a courtesy to insure prompt reporting. The interpreting radiologist is fully responsible for the content of the report.
--- NOTE | 2021-12-08 15:34 | RAD REPORT ---
EXAM DESCRIPTION: RAD - Chest Single View - 12/08/2021 12:32 am CLINICAL HISTORY: 46 years Male, SOB COMPARISON: None. FINDINGS: Opacity in the right mid lower lung zone is present. Possible moderate or large right pleu ral effusion demonstrated.. Cardiomediastinal silhouette is unremarkable. Osseous structures are unremarkable. IMPRESSION: 1. Opacity in the right mid to lower lung zone which could represent atelectasis or cons olidation such as pneumonia. Underlying pulmonary mass difficult to exclude. Follow-up chest CT can b e performed as appropriate. 2. Possible moderate or large right-sided pleural effusion. Electronically signed by: Dirk Quiroz MD 12/08/2021 1:14 AM CDT Due to temporary technical issues with the PACS/Fluency reporting system, reports are being signed by the in house radiologists without review as a courtesy to insure prompt reporting. The interpreting radiologist is fully responsible for the content of the report.
--- NOTE | 2021-12-09 07:59 | EKG ---
Test Date: 2021-12-07 Test Time: 23:57:14 Well Treatment Offsider: CHRISTAL MEASUREMENT RESULTS: Intervals: Rate: 103 NJ: 132 QRSD: 70 QT: 356 QTc: 466 Mcgrath: P: 25 NJ: 132 QRS: 3 T: 53 INTERPRETIVE STATEMENTS: Sinus tachycardia Low voltage QRS Borderline ECG Compared to ECG 07/06/2021 11:59:22 Sinus rhythm no longer present Right superior axis no longer present Myocardial infarct finding no longer present Electronically Signed On 12-09-21 07:55:38 CDT by Rojelio Ralph
== END 2021-12-08 09:45 | disposition short-term general hospital (02) ==
LOC: ER 23:40
DX: K74.60 Unspecified cirrhosis of liver (principal); R07.1 Chest pain on breathing; R18.8 Other ascites; D64.9 Anemia, unspecified; K52.9 Noninfective gastroenteritis and colitis, unspecified; R79.1 Abnormal coagulation profile; R06.02 Shortness of breath; Z20.822 Contact with and (suspected) exposure to COVID-19
CPT/HCPCS: 93005; 87040 ×2; 85025; 80048; 36415; 82140; 85610; 83605; 84484; 83690; 83880; 71250; 74176; 71045; U0003; J3430; C9113; J3010 ×2; J7030; J2405; 96372; 96374; 96375; 99285